=== PATIENT | male | born 1965 | race Caucasian/White ===

== ENCOUNTER 2020-02-14 17:38 | Emergency (ER) | payer SELFPAY ==
[2020-02-14 19:40] LABS: #Basophils 0.1 thou/uL (0.0-0.2); #Eosinphils 0.1 thou/uL (0.0-0.7); #Lymphocytes 1.2 thou/uL (1.20-3.40); #Monocytes 0.8 thou/uL (0.11-0.59); %Basophils 0.7 % (0.0-1.0); %Eosinophils 0.6 % (0.0-10.0); %Lymphocytes 12.8 % (21.0-51.0); Mean Corpuscular HGB CONC 32.7 g/dL (32.0-36.0); Mean Corpuscular Hemoglobin 29.1 pg (27.0-31.0); Mean Corpuscular Volume 89.1 fL (78.0-98.0); Mean Platelet Volume 10.3 fL (7.4-10.4); Platelet Count 78 thou/uL (130-400); RBC Distribution Width 16.4 % (11.5-14.5); Red Blood Cell (RBC) Count 4.14 mill/uL (4.70-6.10)
[2020-02-14 19:51] LABS: Anisocytosis SLIGHT = 6-15 cells (100X) (0-5/hpf); MDiff Complete? YES; Platelet Morphology Comment Appears Decreased
[2020-02-14 19:56] LABS: ALT (SGPT) 77 U/L (8-55); AST (SGOT) 118 U/L (5-34); Albumin 3.3 g/dL (3.5-5.0); Alkaline Phosphatase 162 U/L (40-110); Anion Gap 13 mmol/L (10-20); BUN (Urea Nitrogen) 14 mg/dL (8.4-25.7); CK (CPK) 31 U/L (30-200); Calc. Creatinine Clearance 0 mL/min (70-130); Calcium 8.5 mg/dL (7.8-10.44); Carbon Dioxide 21 mmol/L (22-29); Chloride 99 mmol/L (98-107); Estimated GFR-MDRD Greater than 90; Globulin 3.6 g/dL (2.4-3.5); Glucose 101 mg/dL (70-105); Lipase 45 U/L (8-78); Potassium 4.3 mmol/L (3.5-5.1); Protein, Total 6.9 g/dL (6.0-8.3); Sodium 129 mmol/L (136-145)
[2020-02-14 20:04] LABS: Bilirubin Negative (Negative); Blood, Urine Negative (Negative); Clarity Clear (Clear); Glucose, Urine (Dipstick) Normal (Negative); Ketone, Urine Negative (Negative); Leukocyte Negative Leu/uL (Negative); Nitrite Negative (Negative); Protein, Urine (Dipstick) 10 mg/dL (Neg-Trace); Specific Gravity, Urine 1.021 (1.002-1.036); pH, Urine 6.5 (5.0-9.0)
[2020-02-14] MEDS ORDERED: Morphine 4 MG/ML VIAL ONE (20:35)
[2020-02-14] MEDS ORDERED: Ondansetron PF 4 MG/2 ML Vial ONE (20:35)
--- NOTE | 2020-02-14 22:03 | ULT ---
Right upper quadrant ultrasound: 02/14/2020 COMPARISON: None HISTORY: Right upper quadrant pain TECHNIQUE: Multiplanar grayscale sonographic imaging of the right upper quadrant provided. FINDINGS: The pancreas is not well visualized secondary to obscuration by bowel gas. The liver is nodular and demonstrates a peripheral irregular contour, consistent with cirrhosis. Ther e is associated right upper quadrant perihepatic ascites. Nonspecific mild distention of the gallbladder are noted with no gallbladder wall thickening or galls tones. The cylinder sander operator reports a negative Timmons's sign. The right kidney measures 11.9 cm in craniocaudal dimension and demonstrates no evidence for stone, h ydronephrosis, or mass lesion. The common bile duct measures 3 mm, within normal limits. IMPRESSION: Hepatic cirrhosis with associated right upper quadrant ascites. No evidence for cholelith iasis, cholecystitis, or biliary dilatation.
== END 2020-02-14 23:08 | disposition home or self-care (01) ==
LOC: ERS 17:38
DX: K70.31 Alcoholic cirrhosis of liver with ascites (principal); I10 Essential (primary) hypertension; F41.9 Anxiety disorder, unspecified; E83.110 Hereditary hemochromatosis; F43.10 Post-traumatic stress disorder, unspecified; Z79.899 Other long term (current) drug therapy
CPT/HCPCS: 36415; 76705; 80053; 81003; 82550; 83690; 85025; 87040; 96374; 96375; J2270; J2405

== ENCOUNTER 2020-03-15 18:44 | Inpatient (IN) | payer OTHER ==
[2020-03-15 19:25] LABS: #Eosinphils 0.1 thou/uL (0.0-0.7); #Lymphocytes 1.4 thou/uL (1.20-3.40); #Monocytes 0.6 thou/uL (0.11-0.59); #Neutrophils 2.9 thou/uL (1.40-6.50); %Eosinophils 1.5 % (0.0-10.0); %Neutrophils 58.5 % (42.0-75.0); Hemoglobin 11.1 g/dL (14.0-18.0); Mean Platelet Volume 10.2 fL (7.4-10.4); Platelet Count 67 thou/uL (130-400); RBC Distribution Width 16.7 % (11.5-14.5); Red Blood Cell (RBC) Count 3.83 mill/uL (4.70-6.10)
[2020-03-15 19:32] LABS: ALT (SGPT) 184 U/L (8-55); AST (SGOT) 287 U/L (5-34); Albumin 3.1 g/dL (3.5-5.0); Alkaline Phosphatase 171 U/L (40-110); Anion Gap 12 mmol/L (10-20); BUN (Urea Nitrogen) 20 mg/dL (8.4-25.7); Bilirubin, Total 1.3 mg/dL (0.2-1.2); Calc. Creatinine Clearance 0 mL/min (70-130); Calcium 8.3 mg/dL (7.8-10.44); Carbon Dioxide 25 mmol/L (22-29); Chloride 104 mmol/L (98-107); Estimated GFR-MDRD Greater than 90; Globulin 3.2 g/dL (2.4-3.5); Glucose 108 mg/dL (70-105); Lipase 63 U/L (8-78); Potassium 4.7 mmol/L (3.5-5.1); Protein, Total 6.3 g/dL (6.0-8.3); Sodium 136 mmol/L (136-145)
[2020-03-15] MEDS ORDERED: Pantoprazole 40 MG VIAL ONE (19:54)
[2020-03-15] MEDS ORDERED: Morphine 4 MG/ML VIAL ONE (19:54)
[2020-03-15 20:07] LABS: INR-International Normal Ratio 1.2; PTT 30.8 sec (22.9-36.1); Prothrombin Time 15.8 sec (12.0-14.7)
[2020-03-15 21:09] LABS: Bilirubin Negative (Negative); Blood, Urine Negative (Negative); Clarity Clear (Clear); Glucose, Urine (Dipstick) Normal (Negative); Ketone, Urine Negative (Negative); Leukocyte Negative Leu/uL (Negative); Nitrite Negative (Negative); Protein, Urine (Dipstick) Negative (Neg-Trace); Specific Gravity, Urine 1.013 (1.002-1.036); Urobilinogen Normal mg/dL (Less than 2); pH, Urine 6.5 (5.0-9.0)
[2020-03-15] MEDS ORDERED: Ondansetron PF 4 MG/2 ML Vial IVP PRN (23:45)
[2020-03-15] MEDS ORDERED: Sodium Chloride 0.9% (PF) 10 ML VIAL FS PRN (23:45)
--- NOTE | 2020-03-15 23:53 | PDOC.HHP ---
Hospitalist HPI - History of Present Illness Melena History of Present Illness: 54-year-old gentleman with a history of liver cirrhosis, hemochromatosis and hepatitis C, history of recurrent ascites presented to the emergency department with a complaint of melena stools of onset this afternoon. Patient states this is the first episode. He is on lactulose for hepatic encephalopathy and maintenance spironolactone. His last paracentesis was about 1 month ago. Patient described melena followed by fresh blood in the stool. He stated he vomited once but no blood. Blood work in the ED is remarkable for PT of 15.8 INR 1.2, hemoglobin of 11.1 WBC of 5.0 and platelet count of 67. Patient is admitted for further evaluation and management of liver cirrhosis with melena. Hospitalist ROS - Review of Systems Other: Except as documented, all other systems reviewed and negative. - Medication Medications: Medication Instructions Recorded Confirmed Type DULoxetine [Cymbalta] 60 mg PO DAILY 03/16/20 03/16/20 History Furosemide 40 mg PO DAILY 03/16/20 03/16/20 History Lactulose [Constulose] 30 ml PO QID 03/16/20 03/16/20 History Spironolactone [Aldactone] 100 mg PO DAILY 03/16/20 03/16/20 History Hospitalist History - Past Medical History Other Medical History: Liver cirrhosis, hemochromatosis, hepatitis C, recurrent ascites. - Family History Family History: reports: cancer, diabetes mellitus, hypertension - Social History Smoking Status: Former smoker Alcohol: reports: None (He quit drinking) Drugs: reports: none Living Situation: With Family - Exam General Appearance: NAD, awake alert Eye: PERRL, scleral icterus ENT: normocephalic atraumatic, no oropharyngeal lesions, moist mucosa Neck: supple, symmetric, no JVD Heart: RRR, no murmur, no gallops Respiratory: CTAB, no wheezes, no rales, no ronchi Gastrointestinal: soft, non-tender, normal bowel sounds, distended Extremities: no cyanosis, no edema Skin: normal turgor, no rashes Neurological: cranial nerve grossly intact, no weakness, no focal deficits Musculoskeletal: normal tone, normal strength Psychiatric: normal affect, normal behavior, A&O x 3 Hospitalist Results - Labs Result Diagrams: 03/16/20 05:43 03/16/20 05:43 Lab results: WBC 5.0 thou/uL (4.8-10.8) 03/15/20 19:09 Hgb 11.1 g/dL (14.0-18.0) L 03/15/20 19:09 Hct 33.7 % (42.0-52.0) L 03/15/20 19:09 MCV 88.0 fL (78.0-98.0) 03/15/20 19:09 Plt Count 67 thou/uL (130-400) L 03/15/20 19:09 Neutrophils % 58.5 % (42.0-75.0) 03/15/20 19:09 Sodium 136 mmol/L (136-145) 03/15/20 19:09 Potassium 4.7 mmol/L (3.5-5.1) 03/15/20 19:09 Chloride 104 mmol/L (98-107) 03/15/20 19:09 Carbon Dioxide 25 mmol/L (22-29) 03/15/20 19:09 BUN 20 mg/dL (8.4-25.7) 03/15/20 19:09 Creatinine 0.77 mg/dL (0.7-1.3) 03/15/20 19:09 Glucose 108 mg/dL (70-105) H 03/15/20 19:09 Calcium 8.3 mg/dL (7.8-10.44) 03/15/20 19:09 Total Bilirubin 1.3 mg/dL (0.2-1.2) H 03/15/20 19:09 AST 287 U/L (5-34) H 03/15/20 19:09 ALT 184 U/L (8-55) H 03/15/20 19:09 Alkaline Phosphatase 171 U/L (40-110) H 03/15/20 19:09 Serum Total Protein 6.3 g/dL (6.0-8.3) 03/15/20 19:09 Albumin 3.1 g/dL (3.5-5.0) L 03/15/20 19:09 Lipase 63 U/L (8-78) 03/15/20 19:09 Urine Ketones Negative mg/dL (Negative) 03/15/20 20:52 Urine Blood Negative (Negative) 03/15/20 20:52 Urine Nitrite Negative (Negative) 03/15/20 20:52 Ur Leukocyte Esterase Negative Aubree/uL (Negative) 03/15/20 20:52 Hospitalist H&P A/P - Problem (1) GI bleed Code(s): K92.2 - GASTROINTESTINAL HEMORRHAGE, UNSPECIFIED Status: Acute (2) Liver cirrhosis Code(s): K74.60 - UNSPECIFIED CIRRHOSIS OF LIVER Status: Acute (3) Hemochromatosis Code(s): E83.119 - HEMOCHROMATOSIS, UNSPECIFIED Status: Acute (4) Thrombocytopenia Code(s): D69.6 - THROMBOCYTOPENIA, UNSPECIFIED Status: Acute - Plan Plan: Admit to the medical floor. Start IV Protonix twice daily Will add nadolol due to likelihood of esophageal varices and portal hypertension. Prophylactic IV Rocephin Consult to GI. Monitor H&H every 8 hours. Transfuse PRN for hemoglobin less than 8. Continue home dose lactulose and spironolactone. Obtain liver ultrasound. Need to rule out hepatic vein thrombosis.
[2020-03-16] MEDS: cefTRIAXone\\ROCEPHIN 1 GM in Sodium Chloride 0.9% 100 ML IVPB SCH ×2 (01:27→23:10)
[2020-03-16 01:43] VITALS: BMI 25.2
[2020-03-16] MEDS: traMADol HCl 50 MG TAB PO PRN ×2 (02:39→18:14)
[2020-03-16 06:00] LABS: Hemoglobin 10.5 g/dL (14.0-18.0)
[2020-03-16 06:26] LABS: ALT (SGPT) 177 U/L (8-55); AST (SGOT) 280 U/L (5-34); Albumin 2.8 g/dL (3.5-5.0); Alkaline Phosphatase 159 U/L (40-110); Anion Gap 11 mmol/L (10-20); BUN (Urea Nitrogen) 19 mg/dL (8.4-25.7); Calc. Creatinine Clearance 156 mL/min (70-130); Calcium 7.8 mg/dL (7.8-10.44); Carbon Dioxide 21 mmol/L (22-29); Chloride 106 mmol/L (98-107); Estimated GFR-MDRD Greater than 90; Glucose 91 mg/dL (70-105); Protein, Total 5.8 g/dL (6.0-8.3); Sodium 134 mmol/L (136-145)
[2020-03-16] MEDS: Pantoprazole 40 MG VIAL IVP SCH ×2 (08:47→20:07)
[2020-03-16] MEDS: Nadolol 40 MG TAB PO SCH (08:47)
--- NOTE | 2020-03-16 11:21 | ULT ---
RIGHT UPPER QUADRANT ABDOMINAL ULTRASOUND: DATE: 03/16/2020. PROVIDED CLINICAL HISTORY: GI bleed. FINDINGS: Comparison is made with the study dated 02/14/2020. The visualized portions of the pancreas appear no rmal. The liver demonstrates a nodular margin and a inhomogeneous appearance to the hepatic parenchy ma without evidence for mass or intrahepatic biliary ductal dilatation. The common duct is not dilat ed. The gallbladder demonstrates no stones, wall thickening, or pericholecystic fluid. The kidneys demonstrate no hydronephrosis or mass. The spleen is prominently enlarged, measuring about 18.3 cm i n craniocaudal dimension. There is evidence for free intraperitoneal fluid which appears simple. IMPRESSION: Hepatic cirrhosis with portal hypertension manifested by splenomegaly. Evidence for ascites. POS: BRANDON
--- NOTE | 2020-03-16 15:32 | PDOC.HOSPP ---
- Subjective Encounter Date: 03/16/20 Encounter Time: 11:00 Subjective: Patient up in bed complains of some abdominal pain. - Objective Vital Signs & Weight: Vital Signs (12 hours) Temp Pulse Resp BP Pulse Ox 03/16/20 11:34 97.7 F 63 16 120/75 97 03/16/20 08:41 95 03/16/20 07:10 97.8 F 77 16 124/82 95 03/16/20 04:30 97.8 F 84 20 115/75 95 Weight Weight 197 lb I&O: 03/15/20 03/16/20 03/17/20 06:59 06:59 06:59 Intake Total 160 Balance 160 Result Diagrams: 03/16/20 13:55 03/16/20 05:43 Hospitalist ROS - Review of Systems Cardiovascular: denies: chest pain, palpitations, orthopnea, paroxysmal noc. dyspnea, edema, light headedness, other Gastrointestinal: denies: nausea, vomiting, abdominal pain, diarrhea, constipation, melena, hematochezia, other Genitourinary: denies: dysuria, frequency, incontinence, hematuria, retention, other - Medication Medications: Active Medications Generic Name Dose Route Start Last Admin Trade Name Freq PRN Reason Stop Dose Admin Ceftriaxone Sodium 1 gm/ 100 mls @ 200 mls/hr 03/15/20 23:59 03/16/20 01:27 Sodium Chloride IVPB 100 mls Q24HR GADIEL Administration Lactulose 20 gm 03/16/20 13:00 03/16/20 13:11 Lactulose 20 Gm/30 Ml Udcup PO 20 gm QID GADIEL Administration Nadolol 40 mg 03/16/20 09:00 03/16/20 08:47 Nadolol 40 Mg Tab PO 40 mg DAILY GADIEL Administration Pantoprazole Sodium 40 mg 03/16/20 09:00 03/16/20 08:47 Pantoprazole 40 Mg Vial IVP 40 mg BID GADIEL Administration Tramadol HCl 50 mg 03/16/20 02:08 03/16/20 02:39 Tramadol Hcl 50 Mg Tab PO 50 mg Q6H PRN Administration Moderate to Severe Pain (6-10) - Exam Heart: negative: RRR, no murmur, no gallops, no rubs, normal peripheral pulses, irregular, diminshed peripheral pulses, murmur present, II/IV, III/IV Respiratory: negative: CTAB, no wheezes, no rales, no ronchi, normal chest expansion, no tachypnea, normal percussion, rales, rhonchi, tachypneic, wheezes Gastrointestinal: soft, normal bowel sounds, distended Extremities: 1+ LE edema Hosp A/P (1) GI bleed Code(s): K92.2 - GASTROINTESTINAL HEMORRHAGE, UNSPECIFIED Status: Acute (2) Hemochromatosis Code(s): E83.119 - HEMOCHROMATOSIS, UNSPECIFIED Status: Acute (3) Liver cirrhosis Code(s): K74.60 - UNSPECIFIED CIRRHOSIS OF LIVER Status: Acute (4) Thrombocytopenia Code(s): D69.6 - THROMBOCYTOPENIA, UNSPECIFIED Status: Acute - Plan We will continue IV Protonix. H&H stable. Vitals stable. Possible EGD in a.m. We will hold off on diuretics for now. Patient will require paracentesis before discharge. His last paracentesis was in December. We will get records from [facility]. We will start patient on nadolol. continue a ntibiotics.
[2020-03-16] MEDS: Morphine 2 MG/ML VIAL SLOW IVP PRN (20:05)
[2020-03-16] MEDS ORDERED: FLU VACC QS2020-21(6MOS UP)/PF 60 MCG/0.5 ML SYRINGE IM ONE (21:00)
--- NOTE | 2020-03-16 22:50 | CON ---
DATE OF CONSULTATION: 03/16/2020 REASON FOR CONSULTATION: History of black tarry stool and also one episode of vomiting. HISTORY OF PRESENT ILLNESS: Mr. Leonard Mccall is a 54-year-old male with history of hemochromatosis, liver cirrhosis, chronic hepatitis C. The patient was told to have hemochromatosis several years ago. He has had hepatitis C more than 8 years. He has been going to the [facility] in [place] and did see Dr. 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 Although he has had chronic hepatitis C for over the years, he was never treated. Apparently, he has history of drug abuse and is using marijuana and the [facility] refused to offer the treatment at that time. The patient has had ascites and has had paracentesis off and on. He does have this done at the [facility] in [place]. The last one was couple of months ago. The patient is not on any diuretics at home. However, he was started on diuretics here in the hospital with Lasix 40 once a day and spironolactone 100 mg once a day. He was not taking diuretics before. The patient has had an EGD done a year ago at [facility] for variceal screening. He tells me the EGD did not show any esophageal varices.. The patient had no prior history of GI bleeding. The patient had black tarry stool yesterday after when he came to the ER. He also had episode of vomiting one time. The vomiting did not show any blood or any coffee-ground material. The patient had no more tarry stool since admission to the hospital. Blood count is slightly low at 11.1 yesterday and today dropped to 10.5. Platelet count is low at 77,000. Although the patient has history of hemochromatosis, he had no family history.. His father of motor vehicle accident. His mother had no hemochromatosis. He tells me he has had liver biopsy several years ago and also had gene testing done for hemochromatosis. At the present time, he appears to be comfortable. He does have abdominal bloating and swelling. He says he has gained a lot of weight recently, most likely from the ascitic fluid. The patient denies any aspirin intake, any NSAID medication intake. He has no relevant symptoms. ALLERGIES: ASPIRIN. SOCIAL HISTORY: The patient is . He was using marijuana before, he quit using it. He is a former smoker. He quit drinking in the past. No drug abuse or substance abuse. MEDICAL ILLNESSES: 1. Liver cirrhosis. 2. Hemochromatosis. 3. Hepatitis C. 4. Ascites. 5. Depression, anxiety. REVIEW OF SYSTEMS: A 10-point system review. CONSTITUTIONAL: No history of any fever or chills. No history of any weight loss. His exercise tolerance is poor. HEENT: No chronic headache. No dizziness. Eyes, no diplopia or impaired vision. Ears, no hearing loss. Nose, no nose bleed. No rhinorrhea. Throat, no sore throat or dysphagia. NECK: No stiffness or any limitation of movement. LUNGS: No chronic coughing, hemoptysis, or dyspnea. CARDIOVASCULAR: No chest pain. No palpitation. No dyspnea, orthopnea, or PND. GI: Ascites, abdominal pain, history of tarry stool, and one episode of nausea and vomiting. : No dysuria, hematuria, or frequency of urination. MUSCULOSKELETAL: He has some back pain and arthralgias. NEUROLOGIC: No weakness. No peripheral neuropathy. No CVA. PHYSICAL EXAMINATION: GENERAL: He appears very comfortable, in no acute distress. He is awake, alert, and oriented to time, place, and person. VITAL SIGNS: Stable. Afebrile, pulse is 77, blood pressure 124/82. HEENT: Conjunctivae are clear. NECK: Supple. CARDIOVASCULAR: Normal heart sounds. LUNGS: Clear to auscultation. ABDOMEN: Distended, but soft to palpate. Abdomen is mildly tender over various quadrants. There is no one particular area of tenderness. There is no rebound or guarding. Bowel sounds are normal. EXTREMITIES: Reveal no edema, but he does have varicosities of the veins on the left lower extremity. LABORATORY DATA: CBC; WBC 5000, hemoglobin 11.1, hematocrit 33.7, platelet count 67,000, polymorphs 58, lymphocytes 27, monocytes 12. Today, H and H 10.5, hematocrit 32.8. Chemistry panel shows normal lytes except slightly low sodium at 134, BUN is 19, creatinine 0.69, glucose 91, calcium 7.8, bilirubin is 1, AST 280, ALT 177, alkaline phosphatase 159, albumin 2.8, lipase 63. CLINICAL IMPRESSION: 1. A 54-year-old male with history of liver cirrhosis and he has history of hemochromatosis and also chronic hepatitis C. He has never been treated for hepatitis C. He had no prior episodes of gastrointestinal bleeding. An EGD done a year ago at [facility] and was told to have no esophageal varicosities. 2. Abnormal LFTs, mostly the liver cirrhosis. 3. Ascites. RECOMMENDATIONS: N.p.o. for now. EGD later on today and I will make further recommendation after EGD. I will try to obtain medical records from [facility] and decide further course of treatment as outpatient. Job ID: [id number] [facility]
[2020-03-17 06:23] LABS: #Eosinphils 0.1 thou/uL (0.0-0.7); #Lymphocytes 1.4 thou/uL (1.20-3.40); #Monocytes 0.6 thou/uL (0.11-0.59); #Neutrophils 2.8 thou/uL (1.40-6.50); %Basophils 0.8 % (0.0-1.0); %Eosinophils 2.4 % (0.0-10.0); %Lymphocytes 28.3 % (21.0-51.0); %Neutrophils 55.6 % (42.0-75.0); Hemoglobin 10.7 g/dL (14.0-18.0); Mean Corpuscular HGB CONC 31.9 g/dL (32.0-36.0); Mean Corpuscular Hemoglobin 28.7 pg (27.0-31.0); Mean Corpuscular Volume 89.8 fL (78.0-98.0); Mean Platelet Volume 10.6 fL (7.4-10.4); Platelet Count 70 thou/uL (130-400); Red Blood Cell (RBC) Count 3.71 mill/uL (4.70-6.10); White Blood Cell (WBC) Count 4.9 thou/uL (4.8-10.8)
[2020-03-17 06:39] LABS: ALT (SGPT) 172 U/L (8-55); AST (SGOT) 259 U/L (5-34); Albumin 2.7 g/dL (3.5-5.0); Alkaline Phosphatase 157 U/L (40-110); Anion Gap 8 mmol/L (10-20); BUN (Urea Nitrogen) 18 mg/dL (8.4-25.7); Bilirubin, Total 1.1 mg/dL (0.2-1.2); Calc. Creatinine Clearance 150 mL/min (70-130); Carbon Dioxide 25 mmol/L (22-29); Chloride 108 mmol/L (98-107); Estimated GFR-MDRD Greater than 90; Globulin 2.9 g/dL (2.4-3.5); Glucose 88 mg/dL (70-105); Potassium 4.5 mmol/L (3.5-5.1); Protein, Total 5.6 g/dL (6.0-8.3); Sodium 136 mmol/L (136-145)
[2020-03-17] MEDS: DULoxetine 60 MG CAP PO SCH (08:08)
[2020-03-17] MEDS: Nadolol 40 MG TAB PO SCH (08:08)
[2020-03-17] MEDS: Pantoprazole 40 MG VIAL IVP SCH ×2 (08:08→20:18)
[2020-03-17] MEDS: traMADol HCl 50 MG TAB PO PRN ×3 (08:09→23:59)
[2020-03-17 08:13] LABS: SARS-CoV-2 NAA Rapid Test Not Detected (NotDetected)
[2020-03-17] MEDS ORDERED: Octreotide Acetate 100 MCG/ML VIAL SLOW IVP SCH (13:15)
[2020-03-17] MEDS ORDERED: PROPOFOL 200 MG/20 ML VIAL ONE (14:11)
--- NOTE | 2020-03-17 14:41 | OP ---
DATE OF PROCEDURE: 03/17/2020 PROCEDURE PERFORMED: Esophagogastroduodenoscopy with banding of bleeding esophageal varices and control of hemorrhage. DESCRIPTION OF PROCEDURE: Informed consent was obtained from the patient. He was sedated with total intravenous anesthesia. The bite block was placed and the endoscope was advanced easily to the second portion of the duodenum and retroflexion was performed in the stomach. The esophagus had a large grade 3 varix. There was a circular red delia sign in the distal esophagus and then at 30 cm in the mid esophagus, the same varix had a nipple over it, which appeared to be a bleeding source as well. I placed three bands over this varix. With manipulation, he did bleed actively from the more proximal nipple area. Again, this was banded and hemostasis was achieved. There was a grade 2 varix, which flattened out after the other varix was banded. The stomach had portal hypertensive gastropathy, but no gastric varices. The pylorus and first and second portions of the duodenum were normal. IMPRESSION: 1. Esophageal varices. Once grade 3 varix with red signs distally. Also a nipple over the same varix more proximally at 30 cm that did actively bleed when manipulated. This varix was banded x3 and good hemostasis was confirmed. There was active bleeding during the procedure. 2. A grade 2 varix. flattened out after banding the other varix. 3. Portal hypertensive gastropathy without gastric varices. RECOMMENDATIONS: 1. Octreotide bolus and drip x72 hours. 2. Ceftriaxone x5 day course. 3. Follow trend of the hemoglobin. Job ID: [id number] [facility]
[2020-03-17] MEDS: Morphine 2 MG/ML VIAL SLOW IVP PRN ×3 (16:26→23:59)
[2020-03-17] MEDS: Acetaminophen 325 MG TAB PO PRN (20:17)
[2020-03-18 05:53] LABS: #Basophils 0.1 thou/uL (0.0-0.2); #Eosinphils 0.1 thou/uL (0.0-0.7); #Lymphocytes 1.4 thou/uL (1.20-3.40); #Monocytes 0.6 thou/uL (0.11-0.59); #Neutrophils 2.3 thou/uL (1.40-6.50); %Basophils 1.3 % (0.0-1.0); %Eosinophils 2.2 % (0.0-10.0); %Lymphocytes 31.9 % (21.0-51.0); %Monocytes 12.5 % (0.0-10.0); %Neutrophils 52.1 % (42.0-75.0); Hemoglobin 10.9 g/dL (14.0-18.0); Mean Corpuscular HGB CONC 32.1 g/dL (32.0-36.0); Mean Corpuscular Volume 90.5 fL (78.0-98.0); Mean Platelet Volume 10.7 fL (7.4-10.4); Platelet Count 79 thou/uL (130-400); RBC Distribution Width 17.1 % (11.5-14.5); Red Blood Cell (RBC) Count 3.74 mill/uL (4.70-6.10); White Blood Cell (WBC) Count 4.4 thou/uL (4.8-10.8)
[2020-03-18 05:57] LABS: ALT (SGPT) 181 U/L (8-55); AST (SGOT) 271 U/L (5-34); Albumin 2.6 g/dL (3.5-5.0); Alkaline Phosphatase 152 U/L (40-110); Anion Gap 7 mmol/L (10-20); BUN (Urea Nitrogen) 14 mg/dL (8.4-25.7); Bilirubin, Total 1.3 mg/dL (0.2-1.2); Calc. Creatinine Clearance 142 mL/min (70-130); Calcium 7.6 mg/dL (7.8-10.44); Carbon Dioxide 24 mmol/L (22-29); Chloride 107 mmol/L (98-107); Estimated GFR-MDRD Greater than 90; Globulin 2.9 g/dL (2.4-3.5); Glucose 106 mg/dL (70-105); Potassium 4.2 mmol/L (3.5-5.1); Protein, Total 5.5 g/dL (6.0-8.3); Sodium 134 mmol/L (136-145)
[2020-03-18] MEDS: traMADol HCl 50 MG TAB PO PRN ×3 (08:08→22:28)
[2020-03-18] MEDS: Nadolol 40 MG TAB PO SCH (08:11)
[2020-03-18] MEDS: DULoxetine 60 MG CAP PO SCH (08:11)
[2020-03-18] MEDS: Morphine 2 MG/ML VIAL SLOW IVP PRN ×4 (08:19→21:18)
[2020-03-18] MEDS: Pantoprazole 40 MG VIAL IVP SCH ×2 (12:13→20:35)
--- NOTE | 2020-03-18 13:59 | PDOC.HOSPP ---
- Subjective Encounter Date: 03/17/20 Encounter Time: 14:00 Subjective: Patient up in bed post EGD - Objective Vital Signs & Weight: Vital Signs (12 hours) Temp Pulse Resp BP Pulse Ox 03/18/20 11:50 97.6 F 61 18 126/75 97 03/18/20 07:30 98.2 F 64 14 127/86 93 L Weight Admit Weight 197 lb Weight 197 lb Result Diagrams: 03/18/20 05:01 03/18/20 05:01 Hospitalist ROS - Review of Systems Cardiovascular: denies: chest pain, palpitations, orthopnea, paroxysmal noc. dyspnea, edema, light headedness, other Gastrointestinal: denies: nausea, vomiting, abdominal pain, diarrhea, constipation, melena, hematochezia, other Genitourinary: denies: dysuria, frequency, incontinence, hematuria, retention, other - Medication Medications: Active Medications Generic Name Dose Route Start Last Admin Trade Name Freq PRN Reason Stop Dose Admin Acetaminophen 650 mg 03/17/20 19:21 03/17/20 20:17 Acetaminophen 325 Mg Tab PO 650 mg Q6H PRN Administration Pain Duloxetine HCl 60 mg 03/17/20 09:00 03/18/20 08:11 Duloxetine 60 Mg Cap PO 60 mg DAILY GADIEL Administration Ceftriaxone Sodium 1 gm/ 100 mls @ 200 mls/hr 03/15/20 23:59 03/18/20 00:00 Sodium Chloride IVPB 100 mls Q24HR GADIEL Administration Lactulose 20 gm 03/16/20 13:00 03/18/20 12:49 Lactulose 20 Gm/30 Ml Udcup PO 20 gm QID GADIEL Administration Morphine Sulfate 2 mg 03/17/20 19:20 03/18/20 13:04 Morphine 2 Mg/Ml Vial SLOW IVP 2 mg Q4H PRN Administration Pain Nadolol 40 mg 03/16/20 09:00 03/18/20 08:11 Nadolol 40 Mg Tab PO 40 mg DAILY GADIEL Administration Pantoprazole Sodium 40 mg 03/16/20 09:00 03/18/20 12:13 Pantoprazole 40 Mg Vial IVP Not Given BID GADIEL Tramadol HCl 50 mg 03/16/20 02:08 03/18/20 08:08 Tramadol Hcl 50 Mg Tab PO 50 mg Q6H PRN Administration Moderate to Severe Pain (6-10) - Exam Neck: negative: supple, symmetric, no JVD, no thyromegaly, no lymphadenopathy, no carotid bruit, JVD Heart: negative: RRR, no murmur, no gallops, no rubs, normal peripheral pulses, irregular, diminshed peripheral pulses, murmur present, II/IV, III/IV Respiratory: negative: CTAB, no wheezes, no rales, no ronchi, normal chest expansion, no tachypnea, normal percussion, rales, rhonchi, tachypneic, wheezes Gastrointestinal: negative: soft, non-tender, non-distended, normal bowel sounds, no palpable masses, no hepatomegaly, no splenomegaly, no bruit, no guarding, no rigidity, tender to palpation, distended, diminished bowl sounds, voluntary guarding Hosp A/P (1) GI bleed Code(s): K92.2 - GASTROINTESTINAL HEMORRHAGE, UNSPECIFIED Status: Acute (2) Hemochromatosis Code(s): E83.119 - HEMOCHROMATOSIS, UNSPECIFIED Status: Acute (3) Liver cirrhosis Code(s): K74.60 - UNSPECIFIED CIRRHOSIS OF LIVER Status: Acute (4) Thrombocytopenia Code(s): D69.6 - THROMBOCYTOPENIA, UNSPECIFIED Status: Acute - Plan We will continue IV Protonix. H&H stable. Vitals stable. Possible EGD in a.m. We will hold off on diuretics for now. Patient will require paracentesis before discharge. His last paracentesis was in December. We will get records from [facility]. We will start patient on nadolol. continue antibiotics. 03/17 patient underwent EGD. GI recommended starting patient on octreotide drip. We will continue antibiotics.
--- NOTE | 2020-03-18 14:01 | PDOC.HOSPP ---
- Subjective Encounter Date: 03/18/20 Encounter Time: 11:00 Subjective: Patient up in bed complains of some abdominal pain. - Objective Vital Signs & Weight: Vital Signs (12 hours) Temp Pulse Resp BP Pulse Ox 03/18/20 11:50 97.6 F 61 18 126/75 97 03/18/20 07:30 98.2 F 64 14 127/86 93 L Weight Admit Weight 197 lb Weight 197 lb Result Diagrams: 03/18/20 05:01 03/18/20 05:01 Hospitalist ROS - Review of Systems Respiratory: denies: cough, dry, shortness of breath, hemoptysis, SOB with excertion, pleuritic pain, sputum, wheezing, other Cardiovascular: denies: chest pain, palpitations, orthopnea, paroxysmal noc. dyspnea, edema, light headedness, other Gastrointestinal: reports: abdominal pain Genitourinary: denies: dysuria, frequency, incontinence, hematuria, retention, other - Medication Medications: Active Medications Generic Name Dose Route Start Last Admin Trade Name Freq PRN Reason Stop Dose Admin Acetaminophen 650 mg 03/17/20 19:21 03/17/20 20:17 Acetaminophen 325 Mg Tab PO 650 mg Q6H PRN Administration Pain Duloxetine HCl 60 mg 03/17/20 09:00 03/18/20 08:11 Duloxetine 60 Mg Cap PO 60 mg DAILY GADIEL Administration Ceftriaxone Sodium 1 gm/ 100 mls @ 200 mls/hr 03/15/20 23:59 03/18/20 00:00 Sodium Chloride IVPB 100 mls Q24HR GADIEL Administration Lactulose 20 gm 03/16/20 13:00 03/18/20 12:49 Lactulose 20 Gm/30 Ml Udcup PO 20 gm QID GADIEL Administration Morphine Sulfate 2 mg 03/17/20 19:20 03/18/20 13:04 Morphine 2 Mg/Ml Vial SLOW IVP 2 mg Q4H PRN Administration Pain Nadolol 40 mg 03/16/20 09:00 03/18/20 08:11 Nadolol 40 Mg Tab PO 40 mg DAILY GADIEL Administration Pantoprazole Sodium 40 mg 03/16/20 09:00 03/18/20 12:13 Pantoprazole 40 Mg Vial IVP Not Given BID GADIEL Tramadol HCl 50 mg 03/16/20 02:08 03/18/20 08:08 Tramadol Hcl 50 Mg Tab PO 50 mg Q6H PRN Administration Moderate to Severe Pain (6-10) - Exam Neck: negative: supple, symmetric, no JVD, no thyromegaly, no lymphadenopathy, no carotid bruit, JVD Heart: negative: RRR, no murmur, no gallops, no rubs, normal peripheral pulses, irregular, diminshed peripheral pulses, murmur present, II/IV, III/IV Respiratory: negative: CTAB, no wheezes, no rales, no ronchi, normal chest expansion, no tachypnea, normal percussion, rales, rhonchi, tachypneic, wheezes Gastrointestinal: soft, normal bowel sounds Gastrointestinal - other findings: Mild tender to epigastric area on palpation. Hosp A/P (1) GI bleed Code(s): K92.2 - GASTROINTESTINAL HEMORRHAGE, UNSPECIFIED Status: Acute (2) Hemochromatosis Code(s): E83.119 - HEMOCHROMATOSIS, UNSPECIFIED Status: Acute (3) Liver cirrhosis Code(s): K74.60 - UNSPECIFIED CIRRHOSIS OF LIVER Status: Acute (4) Thrombocytopenia Code(s): D69.6 - THROMBOCYTOPENIA, UNSPECIFIED Status: Acute - Plan We will continue IV Protonix. H&H stable. Vitals stable. Possible EGD in a.m. We will hold off on diuretics for now. Patient will require paracentesis before discharge. His last paracentesis was in December. We will get records from [facility]. We will start patient on nadolol. continue antibiotics. 03/17 patient underwent EGD. GI recommended starting patient on octreotide drip. We will continue antibiotics. 03/18 patient was noted to have esophageal varices. This varix was banded x3 with good hemostasis. Portal hypertensive gastropathy without gastric varices was noted. We will continue octreotide drip and antibiotics for now. We will continue to monitor H&H. Patient may require paracentesis.
[2020-03-18] MEDS: Octreotide Acetate 1,250 MCG in Sodium Chloride 0.9% 250 ML 250 ML IVPB SCH (16:04)
--- NOTE | 2020-03-18 16:24 | PRG ---
DATE OF SERVICE: 03/18/2020 SUBJECTIVE: Mr. Mccall had no further hematemesis. No evidence of overt bleeding. His hemoglobin is stable. He has remained hemodynamically stable. He is tolerating his liquid diet. He has some ongoing constant chest discomfort and discomfort from abdominal distention. OBJECTIVE: VITAL SIGNS: Temperature 97.6, pulse 66, blood pressure 150/98, 94% oxygen saturation on room air. GENERAL: No acute distress, lying in bed comfortably. HEART: Regular rate and rhythm. LUNGS: Clear to auscultation bilaterally. ABDOMEN: Distended with ascites, moderately tense. Bowel sounds are active. Minimal tenderness to palpation throughout, but no guarding, rebound, tenderness. EXTREMITIES: No peripheral edema. LABORATORY STUDIES: Hemoglobin stable at 10.9, WBC 4.4, platelets 79. INR 1.2. Sodium 134, potassium 4.2, BUN 14, creatinine 0.76. Total bilirubin 1.3, alkaline phosphatase 152, AST 271, ALT 181, albumin 2.6. ASSESSMENT AND PLAN: 1. Esophageal varices with hemorrhage, status post variceal band ligation performed yesterday by Dr. Maguire, with successful hemostasis. The patient needs to continue on octreotide for a total of 72 hours post procedure, so he has 2 days left of this. He has been started on nadolol. 2. Ascites. The patient has had a couple of paracentesis in the past several months prior to this admission. His ascites is getting pretty tense. We will go ahead and order a diagnostic/therapeutic paracentesis for tomorrow. On discharge, the patient will need to be on diuretics with Lasix and spironolactone and adhere to a low-sodium diet. 3. Stick with clear liquid diet for now, but if doing well tomorrow, could consider advancing diet cautiously. Job ID: [id number]
[2020-03-18] MEDS: Acetaminophen 325 MG TAB PO PRN (20:34)
[2020-03-18] MEDS: cefTRIAXone\\ROCEPHIN 1 GM in Sodium Chloride 0.9% 100 ML IVPB SCH ×2 (23:14)
[2020-03-19] MEDS ORDERED: Spironolactone 25 MG TAB PO SCH (08:00)
[2020-03-19] MEDS ORDERED: Sodium Bicarbonate 2.5 MEQ/5 ML VIAL ONE (08:39)
[2020-03-19] MEDS ORDERED: Lidocaine 1% PF 5 ML VIAL ONE (08:39)
--- NOTE | 2020-03-19 09:43 | ULT ---
Sonographic guided paracentesis HISTORY: Symptomatic ascites. FINDINGS: After explaining the procedure and answering all questions, sonographic survey showed a mod erate amount of free fluid throughout the abdomen. Sterile technique, buffered local anesthesia, sonographic guidance, and a right lateral approach were used to carefully advance a 19-gauge Yueh needle and catheter in Catheter was left to drain a total volume of 1.6 L clear yellow liquid. Catheter was removed with small amount of fluid remaining. Patient tolerated the procedure well and w as returned in unchanged condition. IMPRESSION : Technically successful sonographic guided paracentesis 1.6 L.
[2020-03-19] MEDS: Morphine 2 MG/ML VIAL SLOW IVP PRN ×3 (09:45→21:16)
[2020-03-19] MEDS: Nadolol 40 MG TAB PO SCH (09:46)
[2020-03-19] MEDS: Pantoprazole 40 MG VIAL IVP SCH ×2 (09:46→20:11)
[2020-03-19] MEDS: DULoxetine 60 MG CAP PO SCH (09:46)
[2020-03-19 12:14] LABS: RBC Count-Automated (BF) 503 /cu.mm; WBC/Nucleated-Auto (BF) 579 uL
[2020-03-19 12:15] LABS: BF Color Yellow; Body Fluid Source Peritoneal Fluid; Clarity Hazy (Clear); Tube # EDTA
[2020-03-19 12:20] LABS: BF Segmented Neutrophils 10 %; Cell Count Non Hematic 74 %; Eosinophils 1 %; Lymphocytes 15 %
[2020-03-19] MEDS: traMADol HCl 50 MG TAB PO PRN ×2 (13:01→20:11)
[2020-03-19] MEDS: Octreotide Acetate 1,250 MCG in Sodium Chloride 0.9% 250 ML 250 ML IVPB SCH (16:19)
--- NOTE | 2020-03-19 18:14 | PRG ---
DATE OF SERVICE: SUBJECTIVE: Patient reports doing well without any further bleeding. There is no melena or hematemesis or coffee-ground emesis. His abdomen feels better with paracentesis. He is requiring less pain medication. PHYSICAL EXAMINATION: VITAL SIGNS: Temperature is 97.7, blood pressure 115/77, and pulse of 70. GENERAL: He is alert and oriented, lucid. HEENT: Anicteric sclerae. Oropharynx is moist. NECK: Supple. CV: Shows normal S1, S2. Regular rate and rhythm. CHEST: Shows breath sounds. ABDOMEN: Still protuberant with ascites, not tense. No tenderness. No tympany. Has active bowel sounds. EXTREMITY: Shows no edema. LABORATORY: Creatinine 0.76. Electrolytes within normal range. Bilirubin 1.3, AST 271, and ALT 183. WBCs 4.4, hemoglobin 10.9, and platelet count of 79. ASSESSMENT: 1. Status post variceal bleed, status post banding therapy two days ago. No further bleeding since. 2. Cirrhosis from hepatitis C, possible prior alcohol. There is also history of reported hemochromatosis. 3. Portal hypertension with esophageal varices and ascites, status post paracentesis today with only 1600 mL fluid removed. RECOMMENDATION: 1. We will advance diet to regular soft GI diet in a.m. 2. Continue with octreotide through tomorrow for a total 72 hours, then discontinue. 3. Continue nadolol 40 mg daily. 4. Increase spironolactone 100 mg p.o. daily and add furosemide 40 mg p.o. daily to manage his ascites. 5. We will follow. Job ID: [id number] [facility] [place] [facility]
[2020-03-20] MEDS: cefTRIAXone\\ROCEPHIN 1 GM in Sodium Chloride 0.9% 100 ML IVPB SCH ×2 (00:20→23:59)
[2020-03-20] MEDS: Morphine 2 MG/ML VIAL SLOW IVP PRN ×6 (01:04→23:58)
[2020-03-20 05:39] LABS: #Basophils 0.1 thou/uL (0.0-0.2); #Eosinphils 0.1 thou/uL (0.0-0.7); #Lymphocytes 1.3 thou/uL (1.20-3.40); #Monocytes 0.5 thou/uL (0.11-0.59); #Neutrophils 2.3 thou/uL (1.40-6.50); %Basophils 1.2 % (0.0-1.0); %Eosinophils 2.8 % (0.0-10.0); %Lymphocytes 29.9 % (21.0-51.0); %Monocytes 11.4 % (0.0-10.0); %Neutrophils 54.7 % (42.0-75.0); Hemoglobin 11.2 g/dL (14.0-18.0); Mean Corpuscular HGB CONC 32.3 g/dL (32.0-36.0); Mean Corpuscular Volume 89.6 fL (78.0-98.0); Mean Platelet Volume 10.4 fL (7.4-10.4); Platelet Count 69 thou/uL (130-400); Red Blood Cell (RBC) Count 3.86 mill/uL (4.70-6.10); White Blood Cell (WBC) Count 4.2 thou/uL (4.8-10.8)
[2020-03-20 06:00] LABS: ALT (SGPT) 190 U/L (8-55); AST (SGOT) 283 U/L (5-34); Albumin 2.6 g/dL (3.5-5.0); Alkaline Phosphatase 140 U/L (40-110); Anion Gap 10 mmol/L (10-20); BUN (Urea Nitrogen) 10 mg/dL (8.4-25.7); Bilirubin, Total 2.1 mg/dL (0.2-1.2); Calc. Creatinine Clearance 142 mL/min (70-130); Calcium 7.8 mg/dL (7.8-10.44); Carbon Dioxide 24 mmol/L (22-29); Chloride 106 mmol/L (98-107); Estimated GFR-MDRD Greater than 90; Globulin 2.8 g/dL (2.4-3.5); Glucose 89 mg/dL (70-105); Potassium 4.1 mmol/L (3.5-5.1); Protein, Total 5.4 g/dL (6.0-8.3); Sodium 136 mmol/L (136-145)
[2020-03-20] MEDS: Furosemide 40 MG TAB PO SCH (06:29)
[2020-03-20] MEDS: DULoxetine 60 MG CAP PO SCH (08:37)
[2020-03-20] MEDS: Spironolactone 100 MG TAB PO SCH (08:37)
[2020-03-20] MEDS: Nadolol 40 MG TAB PO SCH (08:37)
[2020-03-20] MEDS: Pantoprazole 40 MG VIAL IVP SCH ×2 (08:39→19:59)
[2020-03-20] MEDS: traMADol HCl 50 MG TAB PO PRN (08:49)
--- NOTE | 2020-03-20 15:02 | PDOC.HOSPP ---
- Subjective Encounter Date: 03/20/20 Encounter Time: 11:15 Subjective: pt up in bed very emotional. Spoke with patient's who states that patient currently is very emotional and wants a mental health evaluation. Patient is not suicidal or homicidal. - Objective Vital Signs & Weight: Vital Signs (12 hours) Temp Pulse Resp BP Pulse Ox 03/20/20 11:53 98.0 F 63 12 141/94 H 95 03/20/20 08:45 96 03/20/20 08:37 98.1 F 77 18 127/91 H 96 03/20/20 03:41 97.8 F 73 18 119/81 93 L Weight Admit Weight 197 lb Weight 197 lb I&O: 03/19/20 03/20/20 03/21/20 06:59 06:59 06:59 Intake Total 960 820 Balance 960 820 Result Diagrams: 03/20/20 05:21 03/20/20 05:21 Hospitalist ROS - Review of Systems Cardiovascular: denies: chest pain, palpitations, orthopnea, paroxysmal noc. dyspnea, edema, light headedness, other Gastrointestinal: denies: nausea, vomiting, abdominal pain, diarrhea, constipation, melena, hematochezia, other Genitourinary: denies: dysuria, frequency, incontinence, hematuria, retention, other - Medication Medications: Active Medications Generic Name Dose Route Start Last Admin Trade Name Freq PRN Reason Stop Dose Admin Acetaminophen 650 mg 03/17/20 19:21 03/18/20 20:34 Acetaminophen 325 Mg Tab PO 650 mg Q6H PRN Administration Pain Duloxetine HCl 60 mg 03/17/20 09:00 03/20/20 08:37 Duloxetine 60 Mg Cap PO 60 mg DAILY GADIEL Administration Furosemide 40 mg 03/20/20 07:30 03/20/20 06:29 Furosemide 40 Mg Tab PO 40 mg DAILY-AC GADIEL Administration Ceftriaxone Sodium 1 gm/ 100 mls @ 200 mls/hr 03/15/20 23:59 03/20/20 00:20 Sodium Chloride IVPB 100 mls Q24HR GADIEL Administration Octreotide Acetate 1,250 mcg/ 251.25 mls @ 10.05 mls/hr 03/17/20 13:15 03/19/20 16:19 Sodium Chloride IVPB 251.25 mls INF GADIEL Administration 50 MCG/HR Lactulose 20 gm 03/16/20 13:00 03/20/20 12:28 Lactulose 20 Gm/30 Ml Udcup PO 20 gm QID GADIEL Administration Morphine Sulfate 2 mg 03/17/20 19:20 03/20/20 10:34 Morphine 2 Mg/Ml Vial SLOW IVP 2 mg Q4H PRN Administration Pain Nadolol 40 mg 03/16/20 09:00 03/20/20 08:37 Nadolol 40 Mg Tab PO 40 mg DAILY GADIEL Administration Pantoprazole Sodium 40 mg 03/16/20 09:00 03/20/20 08:39 Pantoprazole 40 Mg Vial IVP 40 mg BID GADIEL Administration Spironolactone 100 mg 03/20/20 08:00 03/20/20 08:37 Spironolactone 100 Mg Tab PO 100 mg QAM-WM GADIEL Administration Tramadol HCl 50 mg 03/16/20 02:08 03/20/20 08:49 Tramadol Hcl 50 Mg Tab PO 50 mg Q6H PRN Administration Moderate to Severe Pain (6-10) - Exam Neck: negative: supple, symmetric, no JVD, no thyromegaly, no lymphadenopathy, no carotid bruit, JVD Heart: negative: RRR, no murmur, no gallops, no rubs, normal peripheral pulses, irregular, diminshed peripheral pulses, murmur present, II/IV, III/IV Respiratory: negative: CTAB, no wheezes, no rales, no ronchi, normal chest expansion, no tachypnea, normal percussion, rales, rhonchi, tachypneic, wheezes Gastrointestinal: soft, normal bowel sounds Gastrointestinal - other findings: Mild distention Hosp A/P (1) GI bleed Code(s): K92.2 - GASTROINTESTINAL HEMORRHAGE, UNSPECIFIED Status: Acute (2) Hemochromatosis Code(s): E83.119 - HEMOCHROMATOSIS, UNSPECIFIED Status: Acute (3) Liver cirrhosis Code(s): K74.60 - UNSPECIFIED CIRRHOSIS OF LIVER Status: Acute (4) Thrombocytopenia Code(s): D69.6 - THROMBOCYTOPENIA, UNSPECIFIED Status: Acute - Plan We will continue IV Protonix. H&H stable. Vitals stable. Possible EGD in a.m. We will hold off on diuretics for now. Patient will require paracentesis before discharge. His last paracentesis was in December. We will get records from [facility]. We will start patient on nadolol. continue antibiotics. 03/17 patient underwent EGD. GI recommended starting patient on octreotide drip. We will continue antibiotics. 03/18 patient was noted to have esophageal varices. This varix was banded x3 with good hemostasis. Portal hypertensive gastropathy without gastric varices was noted. We will continue octreotide drip and antibiotics for now. We will continue to monitor H&H. Patient may require paracentesis. 03/20 patient very emotional today. Patient's requested for patient to be seen by mental health. Patient denies any suicidal homicidal ideation. We will continue the octreotide drip for now. Possible discharge in 24 to 48 hours. Vitals and H&H is stable.
--- NOTE | 2020-03-20 15:06 | PDOC.HOSPP ---
- Subjective Encounter Date: 03/19/20 Encounter Time: 16:00 Subjective: Patient up in bed denies any complaints. - Objective Vital Signs & Weight: Vital Signs (12 hours) Temp Pulse Resp BP Pulse Ox 03/20/20 11:53 98.0 F 63 12 141/94 H 95 03/20/20 08:45 96 03/20/20 08:37 98.1 F 77 18 127/91 H 96 03/20/20 03:41 97.8 F 73 18 119/81 93 L Weight Admit Weight 197 lb Weight 197 lb I&O: 03/19/20 03/20/20 03/21/20 06:59 06:59 06:59 Intake Total 960 820 Balance 960 820 Result Diagrams: 03/20/20 05:21 03/20/20 05:21 Hospitalist ROS - Review of Systems Cardiovascular: denies: chest pain, palpitations, orthopnea, paroxysmal noc. dyspnea, edema, light headedness, other Gastrointestinal: denies: nausea, vomiting, abdominal pain, diarrhea, co nstipation, melena, hematochezia, other Genitourinary: denies: dysuria, frequency, incontinence, hematuria, retention, other - Medication Medications: Active Medications Generic Name Dose Route Start Last Admin Trade Name Freq PRN Reason Stop Dose Admin Acetaminophen 650 mg 03/17/20 19:21 03/18/20 20:34 Acetaminophen 325 Mg Tab PO 650 mg Q6H PRN Administration Pain Duloxetine HCl 60 mg 03/17/20 09:00 03/20/20 08:37 Duloxetine 60 Mg Cap PO 60 mg DAILY GADIEL Administration Furosemide 40 mg 03/20/20 07:30 03/20/20 06:29 Furosemide 40 Mg Tab PO 40 mg DAILY-AC GADIEL Administration Ceftriaxone Sodium 1 gm/ 100 mls @ 200 mls/hr 03/15/20 23:59 03/20/20 00:20 Sodium Chloride IVPB 100 mls Q24HR GADIEL Administration Octreotide Acetate 1,250 mcg/ 251.25 mls @ 10.05 mls/hr 03/17/20 13:15 03/19/20 16:19 Sodium Chloride IVPB 251.25 mls INF GADIEL Administration 50 MCG/HR Lactulose 20 gm 03/16/20 13:00 03/20/20 12:28 Lactulose 20 Gm/30 Ml Udcup PO 20 gm QID GADIEL Administration Morphine Sulfate 2 mg 03/17/20 19:20 03/20/20 10:34 Morphine 2 Mg/Ml Vial SLOW IVP 2 mg Q4H PRN Administration Pain Nadolol 40 mg 03/16/20 09:00 03/20/20 08:37 Nadolol 40 Mg Tab PO 40 mg DAILY GADIEL Administration Pantoprazole Sodium 40 mg 03/16/20 09:00 03/20/20 08:39 Pantoprazole 40 Mg Vial IVP 40 mg BID GADIEL Administration Spironolactone 100 mg 03/20/20 08:00 03/20/20 08:37 Spironolactone 100 Mg Tab PO 100 mg QAM-WM GADIEL Administration Tramadol HCl 50 mg 03/16/20 02:08 03/20/20 08:49 Tramadol Hcl 50 Mg Tab PO 50 mg Q6H PRN Administration Moderate to Severe Pain (6-10) - Exam Neck: negative: supple, symmetric, no JVD, no thyromegaly, no lymphadenopathy, no carotid bruit, JVD Heart: negative: RRR, no murmur, no gallops, no rubs, normal peripheral pulses, irregular, diminshed peripheral pulses, murmur present, II/IV, III/IV Respiratory: negative: CTAB, no wheezes, no rales, no ronchi, normal chest expansion, no tachypnea, normal percussion, rales, rhonchi, tachypneic, wheezes Gastrointestinal: soft, normal bowel sounds, tender to palpation Hosp A/P (1) GI bleed Code(s): K92.2 - GASTROINTESTINAL HEMORRHAGE, UNSPECIFIED Status: Acute (2) Hemochromatosis Code(s): E83.119 - HEMOCHROMATOSIS, UNSPECIFIED Status: Acute (3) Liver cirrhosis Code(s): K74.60 - UNSPECIFIED CIRRHOSIS OF LIVER Status: Acute (4) Thrombocytopenia Code(s): D69.6 - THROMBOCYTOPENIA, UNSPECIFIED Status: Acute - Plan We will continue IV Protonix. H&H stable. Vitals stable. Possible EGD in a.m. We will hold off on diuretics for now. Patient will require paracentesis before discharge. His last paracentesis was in December. We will get records from [facility]. We will start patient on nadolol. continue antibiotics. 03/17 patient underwent EGD. GI recommended starting patient on octreotide drip. We will continue antibiotics. 03/18 patient was noted to have esophageal varices. This varix was banded x3 with good hemostasis. Portal hypertensive gastropathy without gastric varices was noted. We will continue octreotide drip and antibiotics for now. We will continue to monitor H&H. Patient may require paracentesis. 03/19 patient up in bed status post paracentesis. We will continue current treatment.
[2020-03-20] MEDS: Octreotide Acetate 1,250 MCG in Sodium Chloride 0.9% 250 ML 250 ML IVPB SCH (20:42)
--- NOTE | 2020-03-21 01:38 | PRG ---
DATE OF SERVICE: 03/20/2020 SUBJECTIVE: Mr. Mccall had a light brown bowel movement today. No further overt bleeding. No abdominal pain. He has had some ascites and had paracentesis yesterday. PHYSICAL EXAMINATION: VITAL SIGNS: Temperature 98.1, pulse is 80, blood pressure 123/80. GENERAL: He is in no acute distress. Alert and oriented x3. No asterixis. LUNGS: Clear to auscultation bilaterally. HEART: Regular rate and rhythm without murmur. ABDOMEN: Soft, mildly distended, but certainly not tense. Bowel sounds are present. EXTREMITIES: No lower extremity edema. LABORATORY DATA: White blood cell count 4.2, hemoglobin 11.2, platelets 69. INR 1.2. Creatinine 0.76, bilirubin 2.1, alkaline phosphatase 140, AST 283, ALT 190. IMPRESSION: 1. Cirrhosis of the liver with history of hemochromatosis. He has undergone phlebotomy in the past. His current ferritin is 76. 2. Acute gastrointestinal bleed secondary to esophageal varices, status post banding with hemostasis. 3. Anemia of acute blood loss. 4. Ascites, status post paracentesis yesterday. RECOMMENDATIONS: 1. We will reduce the octreotide to 25 mcg/hour for the next 12 hours and then he can discontinue that. 2. He can stop antibiotics tomorrow. 3. He should be ready to discharge home tomorrow. He can follow up in GI Clinic. 4. Continue furosemide and spironolactone and a low-salt diet. 5. Continue nadolol as long as he continues to tolerate that well. Job ID: [id number]
[2020-03-21] MEDS: Furosemide 40 MG TAB PO SCH (06:35)
[2020-03-21] MEDS: Nadolol 40 MG TAB PO SCH (09:45)
[2020-03-21] MEDS: DULoxetine 60 MG CAP PO SCH (09:45)
[2020-03-21] MEDS: Spironolactone 100 MG TAB PO SCH (09:45)
[2020-03-21 17:35] LABS: #Eosinphils 0.1 thou/uL (0.0-0.7); #Lymphocytes 1.1 thou/uL (1.20-3.40); #Monocytes 0.5 thou/uL (0.11-0.59); #Neutrophils 3.9 thou/uL (1.40-6.50); %Basophils 0.6 % (0.0-1.0); %Eosinophils 1.3 % (0.0-10.0); %Lymphocytes 19.9 % (21.0-51.0); %Monocytes 8.5 % (0.0-10.0); %Neutrophils 69.7 % (42.0-75.0); Hemoglobin 12.3 g/dL (14.0-18.0); Mean Corpuscular HGB CONC 32.4 g/dL (32.0-36.0); Mean Corpuscular Hemoglobin 29.4 pg (27.0-31.0); Mean Corpuscular Volume 90.9 fL (78.0-98.0); Mean Platelet Volume 9.8 fL (7.4-10.4); Platelet Count 77 thou/uL (130-400); RBC Distribution Width 17.1 % (11.5-14.5); Red Blood Cell (RBC) Count 4.18 mill/uL (4.70-6.10); White Blood Cell (WBC) Count 5.5 thou/uL (4.8-10.8)
[2020-03-21 17:54] LABS: ALT (SGPT) 215 U/L (8-55); AST (SGOT) 312 U/L (5-34); Albumin 2.9 g/dL (3.5-5.0); Alkaline Phosphatase 168 U/L (40-110); Anion Gap 11 mmol/L (10-20); BUN (Urea Nitrogen) 11 mg/dL (8.4-25.7); Bilirubin, Total 3.1 mg/dL (0.2-1.2); Calc. Creatinine Clearance 142 mL/min (70-130); Calcium 8.1 mg/dL (7.8-10.44); Carbon Dioxide 26 mmol/L (22-29); Chloride 103 mmol/L (98-107); Estimated GFR-MDRD Greater than 90; Globulin 3.2 g/dL (2.4-3.5); Glucose 88 mg/dL (70-105); Magnesium 1.5 mg/dL (1.6-2.6); Potassium 4.4 mmol/L (3.5-5.1); Protein, Total 6.1 g/dL (6.0-8.3); Sodium 136 mmol/L (136-145)
[2020-03-21] MEDS ORDERED: Magnesium 2 GM/50 ML 2 GM in Premix Bag 1 BAG IVPB SCH (18:15)
--- NOTE | 2020-03-21 18:46 | PDOC.HOSPP ---
- Subjective Encounter Date: 03/21/20 Encounter Time: 10:30 Subjective: pt up in bed complains of feeling fatigue. - Objective Vital Signs & Weight: Vital Signs (12 hours) Temp Pulse Resp BP Pulse Ox 03/21/20 15:45 98.8 F 78 16 93/60 94 L 03/21/20 12:00 98.0 F 69 14 109/71 96 03/21/20 08:15 96 03/21/20 08:00 97.9 F 80 16 119/82 96 Weight Admit Weight 197 lb Weight 197 lb I&O: 03/20/20 03/21/20 03/22/20 06:59 06:59 06:59 Intake Total 820 Balance 820 Result Diagrams: 03/21/20 17:20 03/21/20 17:20 Hospitalist ROS - Review of Systems Constitutional: reports: weakness, malaise Cardiovascular: denies: chest pain, palpitations, orthopnea, paroxysmal noc. dyspnea, edema, light headedness, other Gastrointestinal: denies: nausea, vomiting, abdominal pain, diarrhea, constipation, melena, hematochezia, other Genitourinary: denies: dysuria, frequency, incontinence, hematuria, retention, other - Medication Medications: Active Medications Generic Name Dose Route Start Last Admin Trade Name Freq PRN Reason Stop Dose Admin Acetaminophen 650 mg 03/17/20 19:21 03/18/20 20:34 Acetaminophen 325 Mg Tab PO 650 mg Q6H PRN Administration Pain Duloxetine HCl 60 mg 03/17/20 09:00 03/21/20 09:45 Duloxetine 60 Mg Cap PO 60 mg DAILY GADIEL Administration Furosemide 40 mg 03/20/20 07:30 03/21/20 06:35 Furosemide 40 Mg Tab PO 40 mg DAILY-AC GADIEL Administration Ceftriaxone Sodium 1 gm/ 100 mls @ 200 mls/hr 03/15/20 23:59 03/20/20 23:59 Sodium Chloride IVPB 100 mls Q24HR GADIEL Administration Lactulose 20 gm 03/16/20 13:00 03/21/20 18:19 Lactulose 20 Gm/30 Ml Udcup PO 20 gm QID GADIEL Administration Morphine Sulfate 2 mg 03/17/20 19:20 03/20/20 23:58 Morphine 2 Mg/Ml Vial SLOW IVP 2 mg Q4H PRN Administration Pain Nadolol 40 mg 03/16/20 09:00 03/21/20 09:45 Nadolol 40 Mg Tab PO 40 mg DAILY GADIEL Administration Pantoprazole Sodium 40 mg 03/21/20 09:00 03/21/20 09:45 Pantoprazole 40 Mg Tab PO 40 mg DAILY GADIEL Administration Spironolactone 100 mg 03/20/20 08:00 03/21/20 09:45 Spironolactone 100 Mg Tab PO 100 mg QAM-WM GADIEL Administration Tramadol HCl 50 mg 03/16/20 02:08 03/20/20 08:49 Tramadol Hcl 50 Mg Tab PO 50 mg Q6H PRN Administration Moderate to Severe Pain (6-10) - Exam Heart: negative: RRR, no murmur, no gallops, no rubs, normal peripheral pulses, irregular, diminshed peripheral pulses, murmur present, II/IV, III/IV Respiratory: negative: CTAB, no wheezes, no rales, no ronchi, normal chest expan daija, no tachypnea, normal percussion, rales, rhonchi, tachypneic, wheezes Gastrointestinal: soft, normal bowel sounds Gastrointestinal - other findings: mild distention Extremities: 1+ LE edema Hosp A/P (1) GI bleed Code(s): K92.2 - GASTROINTESTINAL HEMORRHAGE, UNSPECIFIED Status: Acute (2) Hemochromatosis Code(s): E83.119 - HEMOCHROMATOSIS, UNSPECIFIED Status: Acute (3) Liver cirrhosis Code(s): K74.60 - UNSPECIFIED CIRRHOSIS OF LIVER Status: Acute (4) Thrombocytopenia Code(s): D69.6 - THROMBOCYTOPENIA, UNSPECIFIED Status: Acute - Plan We will continue IV Protonix. H&H stable. Vitals stable. Possible EGD in a.m. We will hold off on diuretics for now. Patient will require paracentesis before discharge. His last paracentesis was in December. We will get records from [facility]. We will start patient on nadolol. continue antibiotics. 03/17 patient underwent EGD. GI recommended starting patient on octreotide drip. We will continue antibiotics. 03/18 patient was noted to have esophageal varices. This varix was banded x3 with good hemostasis. Portal hypertensive gastropathy without gastric varices was noted. We will continue octreotide drip and antibiotics for now. We will continue to monitor H&H. Patient may require paracentesis. 03/20 patient very emotional today. Patient's requested for patient to be seen by mental health. Patient denies any suicidal homicidal ideation. We will continue the octreotide drip for now. Possible discharge in 24 to 48 hours. Vitals and H&H is stable. 03/20 pt's octreotide drip has been discontinued. will continue his current meds. pt was suppose to be discharged today but does not feel well and does not want to go home today. Blood work checked and his magnesium is low will replace. will stop abx per gi recommendation. will check labs in am if stable will discharge him in am.
[2020-03-21] MEDS: Morphine 2 MG/ML VIAL SLOW IVP PRN (20:03)
[2020-03-22] MEDS: Furosemide 40 MG TAB PO SCH (06:08)
[2020-03-22] MEDS: DULoxetine 60 MG CAP PO SCH (08:55)
[2020-03-22] MEDS: Nadolol 40 MG TAB PO SCH (08:55)
[2020-03-22] MEDS: Spironolactone 100 MG TAB PO SCH (08:55)
[2020-03-22 11:05] VITALS: BP 122/79; TEMP 97.7
--- NOTE | 2020-03-22 12:22 | PDOC.HOSPP ---
- Subjective Encounter Date: 03/22/20 Encounter Time: 12:20 Subjective: Mr. Mccall was seen today in follow-up of cirrhosis due to hemachromatosis with GI bleed He does not have any new complaints. - Objective Vital Signs & Weight: Vital Signs (12 hours) Temp Pulse Resp BP Pulse Ox 03/22/20 11:01 97.7 F 78 16 122/79 98 03/22/20 08:55 97 03/22/20 07:24 96.8 F L 84 16 115/82 97 Weight Admit Weight 197 lb Weight 197 lb I&O: 03/21/20 03/22/20 03/23/20 06:59 06:59 06:59 Intake Total 1275 Balance 1275 Result Diagrams: 03/21/20 17:20 03/21/20 17:20 Hospitalist ROS - Medication Medications: Active Medications Generic Name Dose Route Start Last Admin Trade Name Freq PRN Reason Stop Dose Admin Acetaminophen 650 mg 03/17/20 19:21 03/18/20 20:34 Acetaminophen 325 Mg Tab PO 650 mg Q6H PRN Administration Pain Duloxetine HCl 60 mg 03/17/20 09:00 03/22/20 08:55 Duloxetine 60 Mg Cap PO 60 mg DAILY GADIEL Administration Furosemide 40 mg 03/20/20 07:30 03/22/20 06:08 Furosemide 40 Mg Tab PO 40 mg DAILY-AC GADIEL Administration Lactulose 20 gm 03/16/20 13:00 03/22/20 08:55 Lactulose 20 Gm/30 Ml Udcup PO 20 gm QID GADIEL Administration Morphine Sulfate 2 mg 03/17/20 19:20 03/21/20 20:03 Morphine 2 Mg/Ml Vial SLOW IVP 2 mg Q4H PRN Administration Pain Nadolol 40 mg 03/16/20 09:00 03/22/20 08:55 Nadolol 40 Mg Tab PO 40 mg DAILY GADIEL Administration Pantoprazole Sodium 40 mg 03/21/20 09:00 03/22/20 08:55 Pantoprazole 40 Mg Tab PO 40 mg DAILY GADIEL Administration Spironolactone 100 mg 03/20/20 08:00 03/22/20 08:55 Spironolactone 100 Mg Tab PO 100 mg QAM-WM GADIEL Administration Tramadol HCl 50 mg 03/16/20 02:08 03/20/20 08:49 Tramadol Hcl 50 Mg Tab PO 50 mg Q6H PRN Administration Moderate to Severe Pain (6-10) - Exam Eye: PERRL, anicteric sclera Heart: RRR, no murmur, no gallops, no rubs, normal peripheral pulses Respiratory: CTAB, no wheezes, no rales, no ronchi, normal chest expansion, no tachypnea Gastrointestinal: soft, non-tender, normal bowel sounds, no palpable masses, distended Extremities: 1+ LE edema Hosp A/P (1) GI bleed Code(s): K92.2 - GASTROINTESTINAL HEMORRHAGE, UNSPECIFIED Status: Acute (2) Hemochromatosis Code(s): E83.119 - HEMOCHROMATOSIS, UNSPECIFIED Status: Acute (3) Liver cirrhosis Code(s): K74.60 - UNSPECIFIED CIRRHOSIS OF LIVER Status: Acute - Plan * Cirrhosis due to hemachromatosis with GI bleed due to varices. * He is s/p banding * His H&H has been stable * He is stable for discharge home.
--- NOTE | 2020-03-23 | DIS ---
DATE OF ADMISSION: 03/15/2020 DATE OF DISCHARGE: 03/22/2020 DISCHARGE DISPOSITION: Home. DISCHARGE DIAGNOSES: 1. Esophageal varices with bleed. 2. Acute blood loss anemia. 3. Cirrhosis due to hemochromatosis and hepatitis C. 4. History of hepatic encephalopathy. DISCHARGE MEDICATIONS: 1. Tramadol 50 mg q.6 as needed. 2. Lasix 40 mg p.o. daily. 3. Nadolol 40 mg p.o. daily. 4. Cymbalta 60 mg p.o. daily. 5. Lactulose 20 g p.o. q.i.d. 6. Aldactone 100 mg p.o. daily. IMAGING DONE DURING THE HOSPITAL STAY: The patient had an abdominal ultrasound showing hepatic cirrhosis with portal hypertension, and evidence of splenomegaly and ascites. The patient had an upper endoscopy showing esophageal varices, one was grade 3 with red signs distally, this was banded. Also, there was a grade 2 varix, which was flattened out after banding and then evidence of portal hypertensive gastropathy without gastric varices. The patient also had a large volume paracentesis with the drainage of 1.6 L of clear fluid. CODE STATUS: Full code. ALLERGIES: TO ASPIRIN. HOSPITAL COURSE: Mr. Mccall is a 54-year-old gentleman, who presented to the emergency room with dark stools and generalized weakness. He was found to be anemic with a hemoglobin of approximately 12. He was seen by GI. Prior to this, he was placed on IV Protonix as well as octreotide. He underwent upper endoscopy demonstrating 2 esophageal varices, which were banded and evidence for gastropathy and portal hypertension. He was monitored a few days post procedure in the hospital to establish stability of his H and H. He did not have any further bleeding. He also had a therapeutic paracentesis as well as diagnostic. There was no evidence of spontaneous bacterial peritonitis with no organisms seen, and the cell counts was right at 500. He was placed on antibiotics prophylactically, but these were able to be discontinued at discharge. The patient was discharged on 03/22/2020, and has been instructed to have close outpatient followup. Job ID: [id number]
--- NOTE | 2020-03-25 05:35 | PQF ---
Dear : Gilberto Rodriguez Date 03/25/20 Please exercise your independent, professional judgment in responding to the clarification form. Clinical indicators are provided on the bottom of this form for your review Can you please further clarify the relationship of Cirrhosis and esophageal varices? Please check appropriate box(es): [ ] Esophageal Varices due to Liver cirrhosis [ ] Esophageal Varices not due to Liver cirrhosis [ ] Other diagnosis p[lease specify [ ] Unable to determine Physician Signature: Date/Time: For continuity of documentation, please document condition throughout progress notes and discharge summary. Thank You. To be completed by CDI/Coding staff for physician review: Present Clinical Indicators - Signs / Symptoms / Labs Results and Location in Medical Record [ x ] Melena H and P pg.1 [ x ] Hx of liver cirrhosis, hemochromatosis and hepatitis C, History of recurrent ascites H and P pg.1 [ x ] Admitted for evaluation and management of liver cirrhosis and melena H and P pg.1 [ x ] Esophageal varices with hemorrhage PN 03/18 pg.1 [ x ] Cirrhosis of the liver with hx of hemochromatosis, acute GI bleed 2/2 esophageal varices PN 03/20 pg.1 [ x ] Abdominal ultrasound showing hepatic cirrhosis with portal hypertension DS pg.1 Present Risk Factors Results and Location in Medical Record [ x ] GI Bleed H and P pg.3 [ x ] Hemochromatosis H and P pg.3 [ x ] Chronic hepatitis C Consult pg.1 [ x ] Former Smoker Consult pg.1 [ x ] Portal hypertensive gastropathy OP report pg.1 [ x ] Hx of hepatic encephalopathy DS pg.1 Present Treatments Results and Location in Medical Record [ x ] Abdomen Ultrasound 03/15 [ x ] EGD with banding of bleeding esophageal varices OP Report pg.1 [ x ] IV Fluids MAR [ x ] Nephrology Consult Dr. Kelley 03/16 [ x ] Paracentesis 03/19 [ x ] Morphine sulfate 2gm IV MAR [ x ] Aldactone 100 mg PO MAR CDS/[employer]oat [employer]ter Signature: Saurav Mohan Phone #: ext [phone] Date 03/25 This is a permanent part of the Medical Record MTDD
== END 2020-03-22 14:14 | disposition home or self-care (01) | DRG 441 ==
LOC: ERS 18:44 → SURG A 23:14
PROVIDERS: ADMIT Internal Medicine; ATTEND Internal Medicine
PROC: 06L38CZ Occlusion of Esophageal Vein with Extraluminal Device, Via Natural or Artificial Opening Endoscopic (ICD-10-PCS; principal; 2020-03-17)
PROC: 3E02340 Introduction of Influenza Vaccine into Muscle, Percutaneous Approach (ICD-10-PCS; 2020-03-17)
PROC: 0W9G3ZZ Drainage of Peritoneal Cavity, Percutaneous Approach (ICD-10-PCS; 2020-03-19)
DX: K76.6 Portal hypertension (principal); I85.11 Secondary esophageal varices with bleeding; R18.8 Other ascites; D62 Acute posthemorrhagic anemia; K74.60 Unspecified cirrhosis of liver; Z20.828 Contact with and (suspected) exposure to other viral communicable diseases; Z23 Encounter for immunization; F41.9 Anxiety disorder, unspecified; F43.10 Post-traumatic stress disorder, unspecified; F12.10 Cannabis abuse, uncomplicated; E83.119 Hemochromatosis, unspecified; B18.2 Chronic viral hepatitis C; D69.6 Thrombocytopenia, unspecified; K31.89 Other diseases of stomach and duodenum; F32.9 Major depressive disorder, single episode, unspecified; Z90.49 Acquired absence of other specified parts of digestive tract; Z88.8 Allergy status to other drugs, medicaments and biological substances; Z79.899 Other long term (current) drug therapy; Z87.891 Personal history of nicotine dependence
CPT/HCPCS: 36415; 49083; 80053; 81003; 82042; 82274; 82728; 83690; 83735; 84157; 85014; 85018; 85025; 85060; 85610; 85730; 87070; 87205; 88112; 89051; 90471; 90662; 93975; 96374; 96375; C9113; G0008; J0696; J2270; J2354; J2704; J3475; J3490; J7050; U0002

== ENCOUNTER 2020-04-09 08:20 | Inpatient (IN) | payer OTHER ==
[2020-04-09 09:25] LABS: #Basophils 0.1 thou/uL (0.0-0.2); #Eosinphils 0.1 thou/uL (0.0-0.7); #Lymphocytes 1.3 thou/uL (1.20-3.40); #Monocytes 0.8 thou/uL (0.11-0.59); #Neutrophils 7.7 thou/uL (1.40-6.50); %Basophils 0.5 % (0.0-1.0); %Eosinophils 0.6 % (0.0-10.0); %Lymphocytes 12.8 % (21.0-51.0); %Monocytes 8.2 % (0.0-10.0); %Neutrophils 77.9 % (42.0-75.0); Hemoglobin 11.1 g/dL (14.0-18.0); Mean Corpuscular HGB CONC 32.5 g/dL (32.0-36.0); Mean Corpuscular Hemoglobin 28.8 pg (27.0-31.0); Mean Corpuscular Volume 88.6 fL (78.0-98.0); Platelet Count 74 thou/uL (130-400); RBC Distribution Width 16.9 % (11.5-14.5); Red Blood Cell (RBC) Count 3.85 mill/uL (4.70-6.10); White Blood Cell (WBC) Count 9.8 thou/uL (4.8-10.8)
--- NOTE | 2020-04-09 09:31 | RAD ---
XR Chest 1 View Portable HISTORY: Epigastric abdominal pain COMPARISON: None FINDINGS: The heart size is normal. The lungs are well expanded without focal areas of consolidation, pneumothorax or pleural effusions. IMPRESSION: No radiographic evidence of acute cardiopulmonary process.
[2020-04-09 09:33] LABS: INR-International Normal Ratio 1.2; PTT 31.9 sec (22.9-36.1); Prothrombin Time 15.9 sec (12.0-14.7)
[2020-04-09 09:48] LABS: Anion Gap 12 mmol/L (10-20); BUN (Urea Nitrogen) 17 mg/dL (8.4-25.7); Calc. Creatinine Clearance 0 mL/min (70-130); Calcium 8.5 mg/dL (7.8-10.44); Carbon Dioxide 25 mmol/L (22-29); Chloride 99 mmol/L (98-107); Estimated GFR-MDRD Greater than 90; Glucose 104 mg/dL (70-105); Lipase 65 U/L (8-78); Sodium 132 mmol/L (136-145)
[2020-04-09 09:54] LABS: ALT (SGPT) 107 U/L (8-55); AST (SGOT) 154 U/L (5-34); Albumin 3.3 g/dL (3.5-5.0); Alkaline Phosphatase 167 U/L (40-110); Bilirubin, Total 1.5 mg/dL (0.2-1.2); Protein, Total 6.8 g/dL (6.0-8.3)
[2020-04-09] MEDS ORDERED: Morphine 4 MG/ML VIAL ONE (10:51)
[2020-04-09] MEDS ORDERED: cefTRIAXone\\ROCEPHIN 1 GM VIAL ONE (10:51)
[2020-04-09 11:21] LABS: RBC Count-Automated (BF) 1393 /cu.mm; WBC/Nucleated-Auto (BF) 1036 uL
[2020-04-09 11:47] LABS: BF Color Yellow; Body Fluid Source Ascites Body Fluid; Clarity Hazy (Clear); Tube # 1
[2020-04-09 11:53] LABS: BF Segmented Neutrophils 42 %; Cell Count Non Hematic 55 %; Lymphocytes 3 %
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
[2020-04-09] MEDS ORDERED: Metoclopramide HCl 10 MG/2 ML VIAL ONE (12:47)
[2020-04-09] MEDS ORDERED: diphenhydrAMINE 50 MG/ML VIAL ONE (12:47)
[2020-04-09] MEDS ORDERED: Metoclopramide 10 MG/10 ML UDCUP ONE (12:47)
[2020-04-09] MEDS ORDERED: Metoclopramide HCl 10 MG TAB ONE (12:47)
[2020-04-09] MEDS ORDERED: Ondansetron PF 4 MG/2 ML Vial IVP PRN (13:00)
[2020-04-09] MEDS ORDERED: Ondansetron ODT 4 MG TAB PO PRN (13:00)
[2020-04-09 13:02] LABS: Bilirubin Negative (Negative); Blood, Urine Negative (Negative); Clarity Clear (Clear); Glucose, Urine (Dipstick) Normal (Negative); Ketone, Urine Negative (Negative); Leukocyte Negative Leu/uL (Negative); Nitrite Negative (Negative); Protein, Urine (Dipstick) Negative (Neg-Trace); Specific Gravity, Urine 1.019 (1.002-1.036); Urobilinogen Normal mg/dL (Less than 2)
[2020-04-09 17:41] VITALS: BMI 24.7
[2020-04-09 20:21] LABS: Amphetamine Not Detected (NotDetected); Barbiturates Screen Not Detected (NotDetected); Benzodiazepine Screen Not Detected (NotDetected); Cocaine Metabolite Screen Not Detected (NotDetected); Medtox Control Line Valid? VALID (VALID); Medtox Reader # READER 4; Methadone Not Detected (NotDetected); Methamphetamine Not Detected (NotDetected); Opiate Screen Detected (NotDetected); Oxycodone Screen Not Detected (NotDetected); Phencyclidine (PCP) Not Detected (NotDetected); THC/Cannabinoid Screen Detected (NotDetected); Tricyclic Screen Not Detected (NotDetected)
[2020-04-09] MEDS: Famotidine 20 MG TAB PO SCH (21:21)
[2020-04-10] MEDS: traMADol HCl 50 MG TAB PO SCH ×3 (03:35→20:14)
[2020-04-10] MEDS ORDERED: traMADol HCl 50 MG TAB PO SCH (06:00)
[2020-04-10 06:48] LABS: #Eosinphils 0.1 thou/uL (0.0-0.7); #Lymphocytes 1.2 thou/uL (1.20-3.40); #Monocytes 0.7 thou/uL (0.11-0.59); #Neutrophils 4.7 thou/uL (1.40-6.50); %Basophils 0.5 % (0.0-1.0); %Eosinophils 0.9 % (0.0-10.0); %Lymphocytes 17.5 % (21.0-51.0); %Monocytes 10.1 % (0.0-10.0); Hemoglobin 10.4 g/dL (14.0-18.0); Mean Corpuscular Hemoglobin 28.9 pg (27.0-31.0); Mean Corpuscular Volume 90.4 fL (78.0-98.0); Mean Platelet Volume 4.8 fL (7.4-10.4); Platelet Count 71 thou/uL (130-400); White Blood Cell (WBC) Count 6.7 thou/uL (4.8-10.8)
[2020-04-10 06:57] LABS: Anion Gap 10 mmol/L (10-20); BUN (Urea Nitrogen) 15 mg/dL (8.4-25.7); Calc. Creatinine Clearance 149 mL/min (70-130); Calcium 8.1 mg/dL (7.8-10.44); Carbon Dioxide 22 mmol/L (22-29); Chloride 105 mmol/L (98-107); Estimated GFR-MDRD Greater than 90; Glucose 119 mg/dL (70-105); Potassium 3.9 mmol/L (3.5-5.1); Sodium 133 mmol/L (136-145)
[2020-04-10 06:58] LABS: ALT (SGPT) 83 U/L (8-55); AST (SGOT) 113 U/L (5-34); Albumin 2.7 g/dL (3.5-5.0); Alkaline Phosphatase 130 U/L (40-110); Bilirubin, Total 1.6 mg/dL (0.2-1.2); Protein, Total 5.8 g/dL (6.0-8.3)
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
[2020-04-10] MEDS: DULoxetine 60 MG CAP PO SCH (08:28)
[2020-04-10] MEDS: Furosemide 40 MG TAB PO SCH (08:28)
[2020-04-10] MEDS: Nadolol 40 MG TAB PO SCH (08:28)
[2020-04-10] MEDS: Spironolactone 100 MG TAB PO SCH (09:00)
[2020-04-10] MEDS: Famotidine 20 MG TAB PO SCH ×2 (09:00→20:13)
--- NOTE | 2020-04-10 10:06 | CON ---
DATE OF CONSULTATION: 04/09/2020 HISTORY OF PRESENT ILLNESS: This is a 54-year-old male, who is known to me from before. The patient was seen by me a month ago and was hospitalized with black tarry stool and ascites. The patient has history of chronic hepatitis C, untreated over the years. He also has history of hemochromatosis. The patient used to go to [facility] in [place], but he decided not to go there anymore. The patient was hospitalized in February 2020 with a history of black tarry stool, anemia. He underwent EGD and was found to have esophageal varices and underwent banding by Dr. Marco A Maguire. The patient also had paracentesis done during last admission. The patient is on diuretics including Lasix and spironolactone. He was seen in my office a week ago. He has been referred to liver transplant program in [place] and is supposed to go there on April 22. In the meantime, he came to the ER with abdominal pain and was found to have evidence of spontaneous bacterial peritonitis. He had ascitic fluid, cell count showing more than 1036 WBCs and 42% neutrophils. The findings are suggestive of spontaneous bacterial peritonitis. He is on antibiotics. He has done well since last discharge. He has no history of hematemesis or melena. He has no relevant symptoms. MEDICAL ILLNESSES: 1. Liver cirrhosis. 2. Portal hypertension, esophageal varices. 3. Chronic hepatitis C, untreated. 4. History of hemochromatosis. 5. Anxiety. 6. Hypertension. SURGERIES: Appendectomy, hernia repair, has had bilateral rotator cuff repair. He had EGD by Dr. Maguire with banding. MEDICATIONS: Reviewed. REVIEW OF SYSTEMS: PHYSICAL EXAMINATION: GENERAL: He appears comfortable, in no acute distress. VITAL SIGNS: He is afebrile. Pulse is 91, blood pressure 130/83. HEENT: Mildly icteric. NECK: Supple. CARDIOVASCULAR SYSTEM: Normal heart sounds. LUNGS: Clear to auscultation. ABDOMEN: Soft. Abdomen distended with ascites. Abdomen is diffusely tender. No rebound or guarding. Bowel sounds normal. LABORATORY DATA: Shows ascitic fluid showing hazy fluid 1036 WBCs, 42% neutrophils. His serum chemistry shows sodium 132, potassium 4, chloride 99, bicarb is 25, BUN is 17, creatinine 0.74, glucose 104, bilirubin 1.5, direct bilirubin 1.0, AST 154, ALT 107, alkaline phosphatase 167, albumin 3.3. CBC; WBC 9800, hemoglobin 11.1, hematocrit 34.1, platelet count 74,000. CLINICAL IMPRESSION: 1. Liver cirrhosis, ascites, evidence of spontaneous bacterial peritonitis. 2. Abnormal LFTs, acute liver cirrhosis. 3. Chronic hepatitis C, untreated. 4. History of hemochromatosis. 5. Ascites. 6. . 7. Hypertension. RECOMMENDATIONS: Recommend IV antibiotics question of some abnormal fluid . I would prefer to see the patient staying on antibiotics for the next 48 hours and if he does well he can go home on p.o. antibiotics. Make an appointment with liver transplant program in [place] for the transplant. Job ID: [id number]
[2020-04-10 11:33] LABS: SARS-CoV-2 MS2 Positive; SARS-CoV-2 N Gene Negative; SARS-CoV-2 S Gene Negative; SARS-CoV-2 by NAA Not Detected (NotDetected); SARS-CoV-2 orf1ab Negative
[2020-04-10] MEDS: cefTRIAXone\\ROCEPHIN 1 GM in Sodium Chloride 0.9% 100 ML IVPB SCH (12:00)
[2020-04-10] MEDS: Morphine 2 MG/ML VIAL SLOW IVP PRN (16:44)
[2020-04-11] MEDS: traMADol HCl 50 MG TAB PO SCH ×3 (03:58→19:35)
[2020-04-11] MEDS: Calcium Carbonate 500 MG ChewTAB PO PRN ×2 (03:58→11:11)
[2020-04-11] MEDS: Morphine 2 MG/ML VIAL SLOW IVP PRN ×4 (04:49→22:14)
[2020-04-11 06:01] LABS: #Eosinphils 0.1 thou/uL (0.0-0.7); #Lymphocytes 0.9 thou/uL (1.20-3.40); #Monocytes 0.6 thou/uL (0.11-0.59); #Neutrophils 3.8 thou/uL (1.40-6.50); %Basophils 0.4 % (0.0-1.0); %Eosinophils 1.2 % (0.0-10.0); %Lymphocytes 16.4 % (21.0-51.0); %Monocytes 10.7 % (0.0-10.0); %Neutrophils 71.3 % (42.0-75.0); Hemoglobin 10.2 g/dL (14.0-18.0); Mean Corpuscular HGB CONC 32.5 g/dL (32.0-36.0); Mean Corpuscular Hemoglobin 28.7 pg (27.0-31.0); Mean Corpuscular Volume 88.4 fL (78.0-98.0); Mean Platelet Volume 10.2 fL (7.4-10.4); Platelet Count 64 thou/uL (130-400); RBC Distribution Width 16.6 % (11.5-14.5); Red Blood Cell (RBC) Count 3.56 mill/uL (4.70-6.10); White Blood Cell (WBC) Count 5.4 thou/uL (4.8-10.8)
[2020-04-11 06:18] LABS: Anion Gap 13 mmol/L (10-20); BUN (Urea Nitrogen) 16 mg/dL (8.4-25.7); Calc. Creatinine Clearance 151 mL/min (70-130); Calcium 7.9 mg/dL (7.8-10.44); Carbon Dioxide 21 mmol/L (22-29); Chloride 103 mmol/L (98-107); Estimated GFR-MDRD Greater than 90; Glucose 132 mg/dL (70-105); Potassium 3.7 mmol/L (3.5-5.1); Sodium 133 mmol/L (136-145)
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
[2020-04-11] MEDS: Spironolactone 100 MG TAB PO SCH (09:03)
[2020-04-11] MEDS: Famotidine 20 MG TAB PO SCH ×2 (09:03→19:34)
[2020-04-11] MEDS: Furosemide 40 MG TAB PO SCH (09:03)
[2020-04-11] MEDS: DULoxetine 60 MG CAP PO SCH (09:03)
[2020-04-11] MEDS: Nadolol 40 MG TAB PO SCH (09:03)
[2020-04-11] MEDS: cefTRIAXone\\ROCEPHIN 1 GM in Sodium Chloride 0.9% 100 ML IVPB SCH (09:04)
--- NOTE | 2020-04-11 14:09 | PQF ---
CLINICAL DOCUMENTATION CLARIFICATION FORM: Dear GERMAINE Guadalupe Date: 04/11/2020 Please exercise your independent, professional judgment in responding to the clarification form. Clinical indicators are provided on the bottom of this form for your review. Please check appropriate box(s): [ X ] Hyponatremia, mild [ ] Insignificant lab value [ ] Other diagnosis [ ] Unable to determine For continuity of documentation, please document condition throughout progress notes and discharge summary. Thank You. CLINICAL INDICATORS - SIGNS / SYMPTOMS / LABS / RESULTS AND LOCATION IN EMR *LAB (EMR): Sodium Level 04/09 132 04/10 133 04/11 133 RISK FACTORS / RESULTS AND LOCATION IN EMR *H&P 04/09 (Magdi): Takes spironolactone, Lasix at home. *MAR (EMR): Lasix PO daily 04/10-04/11, Spironolactone 100 mg PO QAM 04/10-04/11 TREATMENTS / RESULTS AND LOCATION IN EMR *ED 04/09: NS 500ml IV *LAB (EMR): BMP 04/09-04/11 Thank you, Ronda CDS/Music Sound Light Technician Signature: Ronda Cancino RN, CDS Phone #: [phone] [email or web address] This is a permanent part of the Medical Record [facility]
[2020-04-12] MEDS: traMADol HCl 50 MG TAB PO SCH ×3 (04:23→20:32)
[2020-04-12] MEDS: Calcium Carbonate 500 MG ChewTAB PO PRN (04:24)
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
[2020-04-12 07:41] LABS: #Eosinphils 0.1 thou/uL (0.0-0.7); #Lymphocytes 1.4 thou/uL (1.20-3.40); #Monocytes 0.7 thou/uL (0.11-0.59); #Neutrophils 4.1 thou/uL (1.40-6.50); %Basophils 0.6 % (0.0-1.0); %Lymphocytes 22.4 % (21.0-51.0); %Monocytes 10.5 % (0.0-10.0); %Neutrophils 64.6 % (42.0-75.0); Hemoglobin 11.1 g/dL (14.0-18.0); Mean Corpuscular HGB CONC 31.9 g/dL (32.0-36.0); Mean Corpuscular Hemoglobin 28.3 pg (27.0-31.0); Mean Corpuscular Volume 88.7 fL (78.0-98.0); Mean Platelet Volume 9.6 fL (7.4-10.4); Platelet Count 101 thou/uL (130-400); RBC Distribution Width 16.7 % (11.5-14.5); White Blood Cell (WBC) Count 6.3 thou/uL (4.8-10.8)
[2020-04-12 07:43] LABS: Anion Gap 9 mmol/L (10-20); BUN (Urea Nitrogen) 14 mg/dL (8.4-25.7); Calc. Creatinine Clearance 151 mL/min (70-130); Carbon Dioxide 27 mmol/L (22-29); Chloride 100 mmol/L (98-107); Estimated GFR-MDRD Greater than 90; Glucose 89 mg/dL (70-105); Potassium 3.7 mmol/L (3.5-5.1); Sodium 132 mmol/L (136-145)
[2020-04-12] MEDS: DULoxetine 60 MG CAP PO SCH (08:58)
[2020-04-12] MEDS: Famotidine 20 MG TAB PO SCH ×2 (08:59→20:31)
[2020-04-12] MEDS: Furosemide 40 MG TAB PO SCH (08:59)
[2020-04-12] MEDS: Nadolol 40 MG TAB PO SCH (08:59)
[2020-04-12] MEDS: Spironolactone 100 MG TAB PO SCH (08:59)
[2020-04-12] MEDS: cefTRIAXone\\ROCEPHIN 1 GM in Sodium Chloride 0.9% 100 ML IVPB SCH (11:05)
[2020-04-12] MEDS: Morphine 2 MG/ML VIAL SLOW IVP PRN (20:36)
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
[2020-04-13 06:05] LABS: #Eosinphils 0.1 thou/uL (0.0-0.7); #Lymphocytes 0.9 thou/uL (1.20-3.40); #Monocytes 0.4 thou/uL (0.11-0.59); #Neutrophils 2.6 thou/uL (1.40-6.50); %Basophils 0.6 % (0.0-1.0); %Lymphocytes 21.6 % (21.0-51.0); %Monocytes 11.2 % (0.0-10.0); %Neutrophils 64.6 % (42.0-75.0); Hemoglobin 10.4 g/dL (14.0-18.0); Mean Corpuscular HGB CONC 31.7 g/dL (32.0-36.0); Mean Corpuscular Hemoglobin 28.1 pg (27.0-31.0); Mean Corpuscular Volume 88.7 fL (78.0-98.0); Mean Platelet Volume 9.6 fL (7.4-10.4); Platelet Count 87 thou/uL (130-400); RBC Distribution Width 16.6 % (11.5-14.5); Red Blood Cell (RBC) Count 3.69 mill/uL (4.70-6.10)
[2020-04-13 06:21] LABS: Anion Gap 10 mmol/L (10-20); BUN (Urea Nitrogen) 12 mg/dL (8.4-25.7); Calc. Creatinine Clearance 155 mL/min (70-130); Calcium 7.8 mg/dL (7.8-10.44); Carbon Dioxide 26 mmol/L (22-29); Chloride 102 mmol/L (98-107); Estimated GFR-MDRD Greater than 90; Glucose 116 mg/dL (70-105); Potassium 3.7 mmol/L (3.5-5.1); Sodium 134 mmol/L (136-145)
[2020-04-13] MEDS: traMADol HCl 50 MG TAB PO SCH ×2 (06:32→11:30)
[2020-04-13 07:25] VITALS: BP 118/79; TEMP 98.2
[2020-04-13] MEDS: Famotidine 20 MG TAB PO SCH (08:52)
[2020-04-13] MEDS: DULoxetine 60 MG CAP PO SCH (08:52)
[2020-04-13] MEDS: Spironolactone 100 MG TAB PO SCH (08:52)
[2020-04-13] MEDS: Nadolol 40 MG TAB PO SCH (08:52)
[2020-04-13] MEDS: Furosemide 40 MG TAB PO SCH (08:52)
[2020-04-13] MEDS: cefTRIAXone\\ROCEPHIN 1 GM in Sodium Chloride 0.9% 100 ML IVPB SCH (11:29)
--- NOTE | 2020-04-13 11:53 | PRG ---
DATE OF SERVICE: 04/11/2020 SUBJECTIVE: This is a 54-year-old male with liver cirrhosis, chronic hepatitis C, and ascites. The patient hospitalized 2 days ago with abdominal pain and was found to have evidence of spontaneous bacterial peritonitis. He is on IV antibiotics. Tolerating diet. He has complained of abdominal pain. nausea or vomiting. Ascitic fluid does show evidence of spontaneous bacterial peritonitis. The ascitic fluid cell count has history of peritonitis. Cytology shows no does show some . OBJECTIVE: VITAL SIGNS: Afebrile, pulse is 75, blood pressure is 132/84. HEENT: He is mildly icteric. CARDIOVASCULAR SYSTEM: Normal heart sounds. LUNGS: Clear to auscultation. ABDOMEN: ascites. Mildly tender. No rebound or guarding. LABORATORY DATA: The ascitic fluid cell cytology came back negative for any malignancy. The blood culture is growing gram-negative rods, but the ascitic fluid no organisms seen. RECOMMENDATIONS: Low-salt diet. continue IV antibiotics. Hopefully, the patient can be discharged home in the next 24 to 48 hours on p.o. antibiotics. Job ID: [id number]
[2020-04-13] MEDS: Morphine 2 MG/ML VIAL SLOW IVP PRN (12:49)
--- NOTE | 2020-04-14 00:21 | DIS ---
DATE OF ADMISSION: 04/09/2020 DATE OF DISCHARGE: 04/13/2020 DISCHARGE DIAGNOSES: 1. Spontaneous bacterial peritonitis, resolving. 2. Bacteremia secondarily to Campylobacter species. 3. Hepatic cirrhosis with ascites. 4. Chronic hepatitis C. 5. Marijuana abuse. CONSULTATIONS: 1. Dr. Kelley with GI Service. 2. Dr. Marciano Phan with Infectious Disease Service. PERTINENT LABORATORY AND X-RAY FINDINGS: Sodium ranged between 132 to 134. Lactic acid level 1.1. Total bilirubin ranged between 1.5 to 1.6. AST ranged between 113-154, ALT ranged between 83-107, alkaline phosphatase ranged between 130-167. BNP 41. CBC showed a white blood cell count ranging between 4.0 to 9.8, hemoglobin ranged between 10.2 to 11.1, platelet count ranged between 64-101. ESR 25. INR 1.2. Urine drug screen dated 04/09/2020, positive for cannabinoids. COVID-19 PCR not detected on 04/09/2020. Blood cultures x2 dated 04/09/2020 positive for Campylobacter species. Ascitic fluid culture dated 04/09/2020, showed no growth at four days. Portable chest x-ray dated 04/09/2020, showed no acute cardiopulmonary process. Paracentesis cytology dated 04/09/2020, showed reactive mesothelial cells. HOSPITAL COURSE: The patient was initially admitted after presenting with increasing abdominal pain in the context of known hepatic cirrhosis with ascites in the context of chronic hepatitis C and questionable hemochromatosis. The patient was initially diagnosed with spontaneous bacterial peritonitis, initiated on IV Rocephin, undergoing evaluation of ascites showing no growth at four days. Blood cultures x2 were positive for Campylobacter species and the patient continued on IV Rocephin throughout the hospital course. The patient was resumed on his regular outpatient medications to include spironolactone, Lasix and lactulose. The patient was evaluated by the GI Service with recommendations to continue IV antibiotic therapy and serial monitoring. The patient was also evaluated by the Infectious Disease Service with recommendations to continue quinolone therapy after discontinuation of Rocephin to complete a 5-day course for spontaneous bacterial peritonitis. Overall, the patient did remain clinically stable during the hospital course with stable vital signs at the time of discharge. The patient tolerating regular oral intake and voiding appropriately. I have examined the patient at the time of discharge and discussed followup instructions. The patient verbalizes understanding and agreement, ready for discharge on 04/13/2020. DISCHARGE MEDICATIONS: 1. Levaquin 750 mg p.o. daily x5 days. 2. Spironolactone 100 mg p.o. daily. 3. Lactulose 30 mL p.o. q.i.d. 4. Cymbalta 60 mg p.o. daily. 5. Lasix 40 mg p.o. daily. 6. Tramadol 50 mg p.o. q.8 hours p.r.n. 7. Corgard 40 mg p.o. daily. FOLLOWUP: The patient may follow up with Dr. Kelley with GI Service and to call his office for appointment time and date. CONDITION ON DISCHARGE: Stable. ACTIVITY: Ad-hortencia. DIET: Heart healthy and low-sodium. CODE STATUS: Full. DISPOSITION: To home on 04/13/2020. TIME SPENT: Total time preparing and coordinating discharge is 36 minutes. Job ID: [id number]
--- NOTE | 2020-04-14 13:08 | PRG ---
DATE OF SERVICE: 04/10/2020 SUBJECTIVE: This is a 54-year-old male with abdominal pain and findings of spontaneous bacterial peritonitis. The patient is . The patient was hospitalized here . The patient came to the ER with severe abdominal pain and was found to have evidence of spontaneous bacterial peritonitis. He is on ceftriaxone. abdominal discomfort, pain. The pain is mild PHYSICAL EXAMINATION: GENERAL: He appears comfortable, in no distress. VITAL SIGNS: He is afebrile. Pulse is 99, blood pressure 130/85. CARDIOVASCULAR: LUNGS: LABORATORY DATA: Showed platelet count . Chemistry panel ALT , albumin 2.7 Microbiology, blood cultures ascitic fluid cytology is pending. RECOMMENDATIONS: 1. Continue antibiotics . 2. . Job ID: [id number]
--- NOTE | 2020-04-17 01:43 | PQF ---
CLINICAL DOCUMENTATION CLARIFICATION FORM: Dear : mercedes Mensah DO Date / Time: 04/16/2020 Please exercise your independent, professional judgment in responding to the clarification form. Clinical indicators are provided on the bottom of this form for your review Please check appropriate box(es): [ ] Sepsis due to: Due to: [ ] Device (please specify) [ ] Implant [ ] Graft [ ] Infusion Due to: [ ] Procedure (please specify) [ ] Severe sepsis with associated acute organ dysfunction: [ ] Acute Respiratory Failure [ ] Acute Kidney injury w/o ATN [ ] Acute Kidney Injury w ATN [ ] Encephalopathy (metabolic) (septic) [ ] Disseminated Intravascular Coagulopathy (DIC) [ ] Hepatic Failure [ ] Additional/Other: please specify: [ ] Septic Shock [ x ] Localized infection without sepsis [ ] SIRS due to non-infectious process (please specify etiology) [ ] with organ dysfunction [ ] without organ dysfunction [ ] Other diagnosis (Please specify if any) [ ] Unable to determine In addition, please specify: Present on Admission (POA): [ x ] Yes [ ] No [ ] Unable to determine Physician Signature: Date/Time: For continuity of documentation, please document condition throughout progress notes and discharge summary. Thank You. To be completed by CDI/Coding staff for physician review: Present Clinical Indicators - Signs / Symptoms / Labs Results and Location in Medical Record [ ] Altered mental status, increased confusion, obtunded [x] Fever or hypothermia (<96.8 F/36 C or > 100.4 F/38C) Fever ED provider report on 04/09 [ ] Respiratory rate >20/min, hypoxemia, and or hypercapnia [x] Heart Rate/Tachycardia (>90 bpm), SBP<100mmHg 102 Vitals on 04/10 [ ] Acute organ dysfunction/failure [ ] Metabolic acidosis Lactic Acid >2mmol/L OR 36mg/dL, [ ] Oliguria , increase BUN/Cr, decreased GFR, elevated liver enzymes [ ] Coag abnormalities, thrombocytopenia plts <100k [ ] Shock-hypotension resistant to IV fluid boluses [x] WBC count (>12,000/mm^4 or <4000/mm^3 or 70% neuts, 10% bands) WBC -4.0 Laboratory on 04/13 [x] Spontaneous bacterial peritonitis Discharge summary on 04/13 [x] Bacteremia secondarily to campylobacter species Discharge summary on 04/13 Present Risk Factors Results and Location in Medical Record [x] Infection/Bacteremia Discharge summary on 04/13 [ ] Pneumonia, UTI, infected wound, gangrenous gall bladder Diabetes or Cancer [ ] Surgery / surgical instrumentation / trauma Ruptured/perforated bowel, ruptured appendix [ ] Immunosuppression [ ] Advancing Age Present Treatments Results and Location in Medical Record [ ] Initiation Sepsis Protocol ICU [ ] Daily CBC, blood/sputum/wound cx [ ] ID Consult [x] Rocephin 1gm Medication on 04/09 [x] Rocephin 1gm IV Medication from 04/10 to 04/13 [ ] Vasopressors, meds [ ] Consultants; ID, GI, Pulmonary, Hematology CDS/Director Of Operations Support Signature: AAS Phone #: Date/Time: 04/16/2020 This is a permanent part of the Medical Record [facility]
== END 2020-04-13 13:32 | disposition home or self-care (01) | DRG 372 ==
LOC: ERS 08:20 → OBSVTOIN 12:25 → T4-A 12:25
PROVIDERS: ADMIT Emergency Medicine; ATTEND Family Medicine
DX: K65.2 Spontaneous bacterial peritonitis (principal); R18.8 Other ascites; I85.10 Secondary esophageal varices without bleeding; E87.1 Hypo-osmolality and hyponatremia; K76.6 Portal hypertension; R78.81 Bacteremia; I10 Essential (primary) hypertension; K74.60 Unspecified cirrhosis of liver; B19.20 Unspecified viral hepatitis C without hepatic coma; E83.110 Hereditary hemochromatosis; F12.10 Cannabis abuse, uncomplicated; F41.9 Anxiety disorder, unspecified; F43.10 Post-traumatic stress disorder, unspecified; Z88.6 Allergy status to analgesic agent; Z90.49 Acquired absence of other specified parts of digestive tract; Z98.890 Other specified postprocedural states; Z79.899 Other long term (current) drug therapy; Z20.828 Contact with and (suspected) exposure to other viral communicable diseases
CPT/HCPCS: 36415; 49083; 71045; 80048; 80076; 80306; 81003; 83605; 83690; 83880; 84484; 85025; 85060; 85610; 85652; 85730; 87040; 87070; 87205; 87635; 88112; 88305; 88342; 89051; 93005; 94760; 96365; 96367; 96375; G0378; J0696; J1200; J2270; J2405; J2765; J3490; U0003

== ENCOUNTER 2020-06-11 13:31 | Inpatient (IN) | payer OTHER ==
[2020-06-11] MEDS ORDERED: Iopamidol-370 76% 500 ML 1 ML ONE (14:15)
[2020-06-11] MEDS ORDERED: Vancomycin 1 GM/200 ML BAG ONE (15:39)
[2020-06-11] MEDS ORDERED: Cefepime 2 GM VIAL ONE (15:39)
[2020-06-11] MEDS ORDERED: Morphine 4 MG/ML VIAL ONE (15:39)
[2020-06-11] MEDS ORDERED: Furosemide 40 MG/4 ML VIAL ONE (15:40)
--- NOTE | 2020-06-11 16:07 | RAD ---
Chest one view HISTORY: Chest pain. Dyspnea. COMPARISON: 04/09/2020. FINDINGS: Cardiac silhouette and pulmonary vasculature are unremarkable. Mediastinum is midline. No confluent airspace consolidation or evidence of pneumothorax. Postoperative changes of each shoulder. IMPRESSION : No acute abnormalities are demonstrated
[2020-06-11 16:12] LABS: #Lymphocytes 1.3 thou/uL (1.20-3.40); #Monocytes 0.7 thou/uL (0.11-0.59); #Neutrophils 3.2 thou/uL (1.40-6.50); %Basophils 0.4 % (0.0-1.0); %Eosinophils 0.8 % (0.0-10.0); %Monocytes 12.6 % (0.0-10.0); %Neutrophils 61.2 % (42.0-75.0); Hemoglobin 10.2 g/dL (14.0-18.0); Mean Corpuscular HGB CONC 32.3 g/dL (32.0-36.0); Mean Corpuscular Hemoglobin 27.1 pg (27.0-31.0); Mean Corpuscular Volume 83.9 fL (78.0-98.0); Mean Platelet Volume 10.5 fL (7.4-10.4); Platelet Count 82 thou/uL (130-400); RBC Distribution Width 16.5 % (11.5-14.5); Red Blood Cell (RBC) Count 3.78 mill/uL (4.70-6.10); White Blood Cell (WBC) Count 5.2 thou/uL (4.8-10.8)
[2020-06-11 16:15] LABS: INR-International Normal Ratio 1.2; PTT 31.5 sec (22.9-36.1); Prothrombin Time 15.9 sec (12.0-14.7)
[2020-06-11 16:25] LABS: Bilirubin Negative (Negative); Blood, Urine Negative (Negative); Clarity Clear (Clear); Glucose, Urine (Dipstick) Normal (Negative); Ketone, Urine Negative (Negative); Leukocyte Negative Leu/uL (Negative); Nitrite Negative (Negative); Protein, Urine (Dipstick) Negative (Neg-Trace); Specific Gravity, Urine 1.015 (1.002-1.036); Urobilinogen Normal mg/dL (Less than 2)
[2020-06-11 16:34] LABS: ALT (SGPT) 70 U/L (8-55); AST (SGOT) 106 U/L (5-34); Albumin 3.2 g/dL (3.5-5.0); Alkaline Phosphatase 120 U/L (40-110); Anion Gap 10 mmol/L (10-20); BUN (Urea Nitrogen) 14 mg/dL (8.4-25.7); Bilirubin, Total 1.5 mg/dL (0.2-1.2); CK (CPK) 56 U/L (30-200); Calc. Creatinine Clearance 0 mL/min (70-130); Calcium 8.1 mg/dL (7.8-10.44); Carbon Dioxide 28 mmol/L (22-29); Chloride 103 mmol/L (98-107); Globulin 3.3 g/dL (2.4-3.5); Glucose 63 mg/dL (70-105); Potassium 4.1 mmol/L (3.5-5.1); Protein, Total 6.5 g/dL (6.0-8.3); Sodium 137 mmol/L (136-145)
[2020-06-11] MEDS ORDERED: Ondansetron ODT 4 MG TAB PO PRN (17:45)
[2020-06-11] MEDS ORDERED: Senokot S 8.6-50 MG TAB PO PRN (17:45)
[2020-06-11] MEDS ORDERED: Bisacodyl 5 MG TAB PO PRN (17:45)
[2020-06-11] MEDS ORDERED: Acetaminophen 325 MG TAB PO PRN (17:45)
[2020-06-11] MEDS ORDERED: Ondansetron PF 4 MG/2 ML Vial IVP PRN (17:45)
[2020-06-11] MEDS ORDERED: Calcium Carbonate 500 MG ChewTAB PO PRN (17:45)
[2020-06-11] MEDS ORDERED: Dextrose 50% Abboject 50 ML SYRINGE SLOW IVP PRN (17:57)
[2020-06-11] MEDS ORDERED: Dextrose 5% in Water 1,000 ML IV PRN (17:57)
--- NOTE | 2020-06-11 18:10 | PDOC.HHP ---
Hospitalist HPI - History of Present Illness Lower extremity swelling, abdominal swelling History of Present Illness: PCP: None The patient is a 54-year-old male with a past medical history liver cirrhosis, hepatitis C, and hemochromatosis that presents emergency department with above complaint. The patient reports developing swelling to his bilateral lower extremities for the past for 5 days. He reports that the swelling progressed up into his abdomen over the past 1 to 2 days. He reports moderate pain to his bilateral lower extremities, worse on the right by his ankle, described as "getting hit with a hammer" exacerbated and relieved by nothing. He reports that he does get swelling to his lower extremities quite often, however, it usually goes away on its own after a couple of days. He also reports swelling to his abdomen. He reports that his abdomen is mildly tender and he vomited x1 episode yesterday. He reports his emesis was blood-tinged which he thinks was related to a nosebleed that he developed from vomiting. He denies any melena or hematochezia. He denies any lightheadedness or shortness of breath. He denies any chest pain or heart palpitations. He reports subjective chills at night. He reports approximate 10 pound weight gain over the past month. He reports that he is compliant on his home medications which include Lasix 20 mg twice daily, spironolactone daily, lactulose and recently started rifaximin. He has a prescription for Epclusa, however, he has not started that medication yet. Denies any dysuria or hematuria. He has no other complaints at this time. ED Course: Vital signs temperature 97.7, BP 150/89, HR 86, RR 19, 100% room air CXR no acute process Sodium 137, glucose 63, creatinine 0.66, BUN 14 AST 106 ALT 70 PT 15.9, PTT 31.5, INR 1.2 WBC 5.2, lactic acid 1.6 UA unremarkable Medication ministration: Cefepime IVPB Vancomycin IVPB Lasix 80 mg IVP Morphine IVP Hospitalist ROS - Review of Systems All other systems reviewed; all pertinent +/- noted in HPI/Subj - Medication Medications: Medication Instructions Recorded Confirmed Type DULoxetine [Cymbalta] 60 mg PO DAILY 03/16/20 05/01/20 History Furosemide 40 mg PO DAILY 03/16/20 05/01/20 History Lactulose [Constulose] 30 ml PO QID 03/16/20 05/01/20 History Spironolactone [Aldactone] 100 mg PO DAILY 03/16/20 05/01/20 History Magnesium 250 mg PO DAILY 05/01/20 05/01/20 History Allergies aspirin Adverse Reaction (stomach mixon) causes stomach to burn 06/11/20 17:45 Resuscitation Status Routine Resuscitation Status: FULL: Full Resuscitation Co-Sign Provider: Discussed with: patient Additional comments: Narcisa jacques at [phone] Hospitalist History - Past Medical History Source: patient, old records Cardiac: reports: HTN (Treated with lifestyle) [employer]: reports: Other (Traumatic brain injury) Heme/Onc: reports: Hemochromatosis (Hereditary) Hepatobiliary: reports: Cirrhosis, Hep A/B/C (Hep C) Psych: reports: Anxiety, Other (PTSD) - Past Surgical History Past Surgical History: reports: Appendectomy, Hernia Repair, Other (Unknown surgery for TBI (plate and head), bilateral rotator cuff) - Family History Family History: reports: Other (Noncontributory to this case) - Social History Smoking Status: Never smoker Alcohol: reports: None (He quit drinking greater than 10 years ago, history 35 years 18 beers per day) Drugs: reports: none, marijuana (Says smokes sometimes daily) Living Situation: Other (Lives with shirley) Occupation: Does not work Activity level: independent ambulation - Exam General Appearance: NAD, awake alert. negative: ill appearing General - other findings: Uncomfortable Eye: anicteric sclera ENT: normocephalic atraumatic Neck: supple, no JVD Heart: RRR, no murmur, no gallops, no rubs, normal peripheral pulses Respiratory: CTAB, no wheezes, no rales, no ronchi, normal chest expansion Gastrointestinal: soft, no guarding, no rigidity, tender to palpation (Throughout), distended Extremities: no cyanosis Extremities - other findings: 3+ edema bilateral lower extremities Skin: negative: no rashes (Erythema and warmth, TTP bilateral lower extremities, no open lesions) Neurological: no focal deficits Musculoskeletal: normal tone, normal strength Psychiatric: normal affect, A&O x 3 Hospitalist Results - Labs Result Diagrams: 06/11/20 15:52 06/11/20 15:52 Lab results: WBC 5.2 thou/uL (4.8-10.8) 06/11/20 15:52 Hgb 10.2 g/dL (14.0-18.0) L 06/11/20 15:52 Hct 31.7 % (42.0-52.0) L 06/11/20 15:52 MCV 83.9 fL (78.0-98.0) 06/11/20 15:52 Plt Count 82 thou/uL (130-400) L 06/11/20 15:52 Neutrophils % 61.2 % (42.0-75.0) 06/11/20 15:52 Sodium 137 mmol/L (136-145) 06/11/20 15:52 Potassium 4.1 mmol/L (3.5-5.1) 06/11/20 15:52 Chloride 103 mmol/L (98-107) 06/11/20 15:52 Carbon Dioxide 28 mmol/L (22-29) 06/11/20 15:52 BUN 14 mg/dL (8.4-25.7) 06/11/20 15:52 Creatinine 0.66 mg/dL (0.7-1.3) L 06/11/20 15:52 Glucose 63 mg/dL (70-105) L 06/11/20 15:52 Lactic Acid 1.6 mmol/L (0.5-2.2) 06/11/20 15:52 Calcium 8.1 mg/dL (7.8-10.44) 06/11/20 15:52 Total Bilirubin 1.5 mg/dL (0.2-1.2) H 06/11/20 15:52 AST 106 U/L (5-34) H 06/11/20 15:52 ALT 70 U/L (8-55) H 06/11/20 15:52 Alkaline Phosphatase 120 U/L (40-110) H 06/11/20 15:52 Creatine Kinase 56 U/L (30-200) 06/11/20 15:52 B-Natriuretic Peptide 76.2 pg/mL (0-100) 06/11/20 15:52 Serum Total Protein 6.5 g/dL (6.0-8.3) 06/11/20 15:52 Albumin 3.2 g/dL (3.5-5.0) L 06/11/20 15:52 Urine Ketones Negative mg/dL (Negative) 06/11/20 15:55 Urine Blood Negative (Negative) 06/11/20 15:55 Urine Nitrite Negative (Negative) 06/11/20 15:55 Ur Leukocyte Esterase Negative Aubree/uL (Negative) 06/11/20 15:55 - Radiology Interpretation CT scan - abdomen Status: pending Chest x-ray Status: report reviewed by me Additional Comment: No acute cardiopulmonary process US - abdomen Status: pending Hospitalist H&P A/P - Problem (1) Cellulitis of both lower extremities Code(s): L03.115 - CELLULITIS OF RIGHT LOWER LIMB; L03.116 - CELLULITIS OF LEFT LOWER LIMB Status: Acute (2) Cirrhosis of liver with ascites Code(s): K74.60 - UNSPECIFIED CIRRHOSIS OF LIVER; R18.8 - OTHER ASCITES Status: Acute (3) Abdominal pain Code(s): R10.9 - UNSPECIFIED ABDOMINAL PAIN Status: Acute (4) GERD (gastroesophageal reflux disease) Code(s): K21.9 - GASTRO-ESOPHAGEAL REFLUX DISEASE WITHOUT ESOPHAGITIS Status: Chronic (5) Hemochromatosis, hereditary Code(s): E83.110 - HEREDITARY HEMOCHROMATOSIS Status: Chronic (6) PTSD (post-traumatic stress disorder) Code(s): F43.10 - POST-TRAUMATIC STRESS DISORDER, UNSPECIFIED Status: Chronic - Plan Plan: 54/M with PMH cirrhosis, hep C, ascites and esophageal varices presents for bilateral lower extremity swelling abdominal swelling. Admit to telemetry floor, inpatient status. Expected length stay greater than 2 midnights. #Cellulitis of both lower extremities Continue vancomycin and cefepime. Update tetanus. Elevate extremities when at rest. Venous ultrasound to rule out DVT. #Cirrhosis of liver with ascites Reports abdominal pain is subjective fever/chills at home. 10 pound weight gain in 1 month. Reports drinking a lot of water at home. A: abdomen TTP WBC 5.2, LA 1.6. Continue Vanc and add zosyn. Order CT abdomen pelvis Abdominal ultrasound to assess for ascites. Continue Lasix 40 mg IVP twice daily Restart home dose spironolactone, lactulose, rifaximin. Hold anticoagulation for now, pending radiology. Daily weight, sodium restriction, fluid restriction. Consult dietary. Accuchecks, presented BG 63. #Abdominal pain Likely related to problem #2. #GERD Chronic. Protonix daily. #Hemochromatosis, hereditary Chronic, appears stable. #PTSD Denies SI/HI. Takes duloxetine at home. Restart home dose duloxetine No SCDs for DVT prophylaxis. No pharmacological DVT prophylaxis, pending ABD US and CT. CODE STATUS is full code. Contact his Narcisa watson at [phone]. Discussed the case with attending physician, Dr. Price, who agrees with plan of care.
--- NOTE | 2020-06-11 18:27 | ULT ---
Bilateral lower extremity venous Doppler ultrasound: 06/11/2020 COMPARISON: None HISTORY: Pain, edema, assess for DVT TECHNIQUE: Multiplanar grayscale sonographic imaging of the venous structures of bilateral lower extr emities obtained with color flow and spectral analysis FINDINGS: Bilateral common femoral veins, greater saphenous veins, profunda femoral veins, femoral ve ins, popliteal veins, and posterior tibial veins are patent. There is normal blood flow, augmentation, and compression within the deep venous system bilaterally. No evidence for DVT on eithe r side IMPRESSION: No evidence for deep venous thrombosis of either lower extremity.
[2020-06-11] MEDS ORDERED: TETANUS AND DIPHTHERIA TOX/PF 0.5 ML DISP.SYRIN IM ONE (21:00)
[2020-06-11] MEDS ORDERED: Enoxaparin Sodium 40 MG/0.4 ML SYRINGE SC SCH (21:00)
--- NOTE | 2020-06-11 21:28 | ULT ---
Limited abdominal ultrasound-ascites search 06/11/2020 HISTORY: Evaluate for ascites TECHNIQUE: Multiplanar grayscale sonographic imaging of the abdomen as below. Findings: The hepatic parenchyma is heterogeneous and demonstrates an irregular margin, evidence of c irrhosis. The spleen appears enlarged suggesting portal hypertension. There is moderate volume ascites noted, most prominent in the left lower quadrant, the right lower quadrant, and the perihepat ic region. IMPRESSION: Cirrhotic configuration of the liver with moderate ascites as above.
[2020-06-11] MEDS: Rifaximin 550 MG TAB PO SCH (21:39)
[2020-06-11 21:43] VITALS: BMI 25.9
[2020-06-11] MEDS ORDERED: CEFAZOLIN 2 GM in Premix Bag 1 BAG IVPB SCH (22:00)
[2020-06-11] MEDS: Morphine 4 MG/ML VIAL SLOW IVP PRN (22:24)
--- NOTE | 2020-06-11 22:55 | CT ---
CT of the abdomen and pelvis: 06/11/2020 COMPARISON: None HISTORY: Abdominal pain and swelling TECHNIQUE: Axial CT imaging at 5 mm intervals from lung bases through pubic symphysis with IV contras t. Coronal and sagittal reformatted imaging obtained. FINDINGS: The imaged lung bases demonstrate mild atelectatic change. The hepatic parenchyma demonstra amber a cirrhotic configuration. The portal vein appears patent. The spleen is enlarged measuring 17.6 cm. There is free fluid adjacent to the liver and spleen extending into the paracolic gutters, r ight greater than left. There is free fluid within the pelvis. The gallbladder, pancreas, adrenal glands, and kidneys demonstrate no acute findings. Limited assessment of the bowel demonstrates no evidence for obstruction. There are varices in the anterior upper abdomen, the paraesophageal region, the gastrohepatic ligamen t, and the splenic hilum. No significant abdominal or pelvic lymphadenopathy. Review of the osseous structures demonstrates no worrisome lytic or blastic bone lesions. IMPRESSION: Cirrhotic configuration of the liver. Splenomegaly, ascites within the abdomen/pelvis, an d multi focal varices are consistent with portal hypertension.
[2020-06-12] MEDS: Piperacillin/Tazobactam 3.375 GM in Sodium Chloride 0.9% 100 ML IVPB SCH ×3 (00:29→12:00)
[2020-06-12] MEDS ORDERED: TETANUS AND DIPHTHERIA TOX/PF 0.5 ML DISP.SYRIN IM ONE (00:45)
[2020-06-12] MEDS: Vancomycin HCl 1.25 GM in Sodium Chloride 0.9% 250 ML 250 ML IVPB SCH ×2 (01:03→10:27)
[2020-06-12] MEDS ORDERED: Cefepime 2 GM in Sodium Chloride 0.9% 100 ML IVPB SCH (04:00)
[2020-06-12 05:23] LABS: #Lymphocytes 0.8 thou/uL (1.20-3.40); #Monocytes 0.4 thou/uL (0.11-0.59); %Basophils 0.3 % (0.0-1.0); %Eosinophils 1.3 % (0.0-10.0); %Lymphocytes 24.8 % (21.0-51.0); %Monocytes 11.8 % (0.0-10.0); %Neutrophils 61.8 % (42.0-75.0); Hemoglobin 9.3 g/dL (14.0-18.0); Mean Corpuscular HGB CONC 31.6 g/dL (32.0-36.0); Mean Corpuscular Hemoglobin 26.5 pg (27.0-31.0); Mean Corpuscular Volume 83.7 fL (78.0-98.0); Mean Platelet Volume 11.5 fL (7.4-10.4); Platelet Count 66 thou/uL (130-400); RBC Distribution Width 16.5 % (11.5-14.5); Red Blood Cell (RBC) Count 3.51 mill/uL (4.70-6.10); White Blood Cell (WBC) Count 3.3 thou/uL (4.8-10.8)
[2020-06-12 05:37] LABS: ALT (SGPT) 60 U/L (8-55); AST (SGOT) 94 U/L (5-34); Albumin 2.8 g/dL (3.5-5.0); Alkaline Phosphatase 109 U/L (40-110); Anion Gap 11 mmol/L (10-20); BUN (Urea Nitrogen) 14 mg/dL (8.4-25.7); Bilirubin, Total 1.3 mg/dL (0.2-1.2); Calc. Creatinine Clearance 156 mL/min (70-130); Calcium 7.7 mg/dL (7.8-10.44); Carbon Dioxide 27 mmol/L (22-29); Chloride 102 mmol/L (98-107); Globulin 2.9 g/dL (2.4-3.5); Glucose 113 mg/dL (70-105); Potassium 3.5 mmol/L (3.5-5.1); Protein, Total 5.7 g/dL (6.0-8.3); Sodium 136 mmol/L (136-145)
[2020-06-12] MEDS: Furosemide 40 MG/4 ML VIAL SLOW IVP SCH ×2 (06:18→15:27)
[2020-06-12] MEDS: Morphine 4 MG/ML VIAL SLOW IVP PRN ×4 (06:26→21:16)
[2020-06-12 08:08] LABS: SARS-CoV-2 MS2 Positive; SARS-CoV-2 N Gene Negative; SARS-CoV-2 S Gene Negative; SARS-CoV-2 by NAA Not Detected (NotDetected); SARS-CoV-2 orf1ab Negative
[2020-06-12] MEDS: Rifaximin 550 MG TAB PO SCH ×2 (08:42→21:16)
[2020-06-12] MEDS: DULoxetine 60 MG CAP PO SCH (08:42)
[2020-06-12] MEDS: Spironolactone 100 MG TAB PO SCH (08:42)
[2020-06-12] MEDS: Pantoprazole 40 MG VIAL IVP SCH (08:42)
[2020-06-12] MEDS ORDERED: Lidocaine 1% PF 5 ML VIAL ONE (13:12)
[2020-06-12] MEDS ORDERED: Sodium Bicarbonate 2.5 MEQ/5 ML VIAL ONE (13:12)
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
--- NOTE | 2020-06-12 15:12 | ULT ---
Sonographic guided paracentesis HISTORY: Ascites. Concern for peritonitis. FINDINGS: After explaining the procedure and answering all questions, sonographic survey showed a sma ll amount of free fluid within the abdomen. Patient made to clear his desire to attempt maximum fluid aspiration. Right lateral approach was planned. Sterile technique, buffered local anesthesia, sonographic guidance, and a right lateral approach were used to carefully advance a 19-gauge Yueh needle and catheter into the free fluid. A total volume of 50 cc light yellow liquid was obtained and submitted to pathology for evaluation. Catheter was rem erum with minimal fluid remaining. Patient tolerated the procedure well and was returned in unchanged condition. IMPRESSION : Successful paracentesis. 50 cc. Pathology pending.
[2020-06-12 16:29] LABS: Vancomycin, Trough 20.3 ug/mL
[2020-06-12] MEDS ORDERED: Vancomycin 1 GM in Premix Bag 1 BAG IVPB SCH (16:30)
[2020-06-12 16:32] LABS: RBC Count-Automated (BF) 2129 /cu.mm; WBC/Nucleated-Auto (BF) 434 uL
[2020-06-12 16:37] LABS: BF Color Yellow; Body Fluid Source Ascites Body Fluid; Clarity Cloudy/Turbid (Clear); Tube # EDTA
[2020-06-12 16:39] LABS: BF Segmented Neutrophils 19 %; Cell Count Non Hematic 50 %; Lymphocytes 31 %
--- NOTE | 2020-06-12 18:42 | PDOC.HOSPP ---
- Subjective Encounter Date: 06/12/20 Encounter Time: 10:00 Subjective: Patient seen and examined for abdominal pain with lower extremity cellulitis. Denies any new complaints. No nausea or vomiting reported - Objective Vital Signs & Weight: Vital Signs (12 hours) Temp Pulse Resp BP Pulse Ox 06/12/20 16:00 97.9 F 82 16 146/83 H 06/12/20 12:00 97.6 F 75 16 139/86 06/12/20 08:37 97.7 F 89 20 152/95 H 06/12/20 08:00 97 Weight Weight 201 lb 8.745 oz I&O: 06/11/20 06/12/20 06/13/20 06:59 06:59 06:59 Intake Total 1990 Output Total 5000 Balance -3010 Result Diagrams: 06/12/20 04:23 06/12/20 04:23 Additional Labs: Accuchecks 06/12/20 06/11/20 05:16 20:50 POC Glucose 89 142 H Abnormal Lab Results - Last 48 hrs 06/11/20 15:52: Creatinine 0.66 L, Total Bilirubin 1.5 H, AST 106 H, ALT 70 H, Alkaline Phosphatase 120 H, Albumin 3.2 L, Albumin/Globulin Ratio 1.0 L 06/11/20 15:52: PT 15.9 H 06/11/20 15:52: RBC 3.78 L, Hgb 10.2 L, Hct 31.7 L, RDW 16.5 H, Plt Count 82 L, MPV 10.5 H, Monocytes % 12.6 H, Monocytes # 0.7 H 06/11/20 15:52: ESR Westergren 21 H 06/12/20 04:23: Calcium 7.7 L, Total Bilirubin 1.3 H, AST 94 H, ALT 60 H, Serum Total Protein 5.7 L, Albumin 2.8 L, Albumin/Globulin Ratio 1.0 L 06/12/20 04:23: WBC 3.3 L, RBC 3.51 L, Hgb 9.3 L, Hct 29.4 L, MCH 26.5 L, MCHC 31.6 L, RDW 16.5 H, Plt Count 66 L, MPV 11.5 H, Monocytes % 11.8 H, Lymphocytes # 0.8 L 06/12/20 14:00: Fluid Clarity Cloudy/Turbid H Radiology Reviewed by me: Yes (CT abdomenportal hypertension) EKG Reviewed by me: Yes (Sinus rhythm on telemetry) Hospitalist ROS - Review of Systems Constitutional: reports: weakness. denies: fever, chills, sweats, malaise, other Cardiovascular: denies: chest pain, palpitations, orthopnea, paroxysmal noc. dyspnea, edema, light headedness, other - Medication Medications: Active Medications Generic Name Dose Route Start Last Admin Trade Name Freq PRN Reason Stop Dose Admin Acetaminophen 650 mg 06/11/20 17:45 06/11/20 21:39 Acetaminophen 325 Mg Tab PO 650 mg Q6H PRN Administration Headache/Fever/Mild Pain (1-3) Duloxetine HCl 60 mg 06/12/20 09:00 06/12/20 08:42 Duloxetine 60 Mg Cap PO 60 mg DAILY GADIEL Administration Furosemide 40 mg 06/12/20 06:00 06/12/20 15:27 Furosemide 40 Mg/4 Ml Vial SLOW IVP 40 mg 0600,1400 GADIEL Administration Lactulose 20 gm 06/11/20 21:00 06/12/20 17:51 Lactulose 20 Gm/30 Ml Udcup PO 20 gm QID GADIEL Administration Morphine Sulfate 4 mg 06/11/20 22:19 06/12/20 18:05 Morphine 4 Mg/Ml Vial SLOW IVP 4 mg Q3H PRN Administration Moderate to Severe Pain (6-10) Pantoprazole Sodium 40 mg 06/12/20 09:00 06/12/20 08:42 Pantoprazole 40 Mg Vial IVP 40 mg DAILY GADIEL Administration Rifaximin 550 mg 06/11/20 21:00 06/12/20 08:42 Rifaximin 550 Mg Tab PO 550 mg BID GADIEL Administration Spironolactone 100 mg 06/12/20 09:00 06/12/20 08:42 Spironolactone 100 Mg Tab PO 100 mg DAILY GADIEL Administration - Exam General Appearance: awake alert, ill appearing Neck: supple, no JVD Heart: RRR, no gallops, no rubs, normal peripheral pulses Respiratory: no wheezes, no rales, no ronchi Respiratory - other findings: Diminished air entry at base Gastrointestinal: soft, normal bowel sounds, no guarding, no rigidity Gastrointestinal - other findings: Mild generalized tenderness Extremities: no cyanosis, no clubbing, 2+ LE edema Extremities - other findings: Bilateral lower extremity erythema Neurological: no new deficit Hosp A/P - Plan DVT proph w/SCDs (No heparin or Lovenox due to thrombocytopenia) Abdominal pain/swellingprobably due to symptomatic ascitesrule out SBP Bilateral lower extremity erythema probably due to cellulitis Chronic hepatitis C History of hemochromatosis GERD History of PTSD Pancytopenia/Coagulopathy/abnormal LFTs due to cirrhosis History of esophageal varices with recent EGD History of cannabis abuse History of SBP in 04/18 Plan: Paracentesis today. Await GI input. Will consult infectious disease for questionable bilateral lower extremity cellulitis. Will continue Lasix along with spironolactone. A.m. labs. Continue other medications as above.
[2020-06-13] MEDS: Furosemide 40 MG/4 ML VIAL SLOW IVP SCH ×2 (05:21→13:14)
[2020-06-13] MEDS: Morphine 4 MG/ML VIAL SLOW IVP PRN ×5 (05:23→21:43)
[2020-06-13 05:47] LABS: #Lymphocytes 0.8 thou/uL (1.20-3.40); #Monocytes 0.4 thou/uL (0.11-0.59); #Neutrophils 2.6 thou/uL (1.40-6.50); %Eosinophils 1.1 % (0.0-10.0); %Lymphocytes 20.3 % (21.0-51.0); %Monocytes 10.9 % (0.0-10.0); %Neutrophils 66.6 % (42.0-75.0); Mean Corpuscular HGB CONC 31.7 g/dL (32.0-36.0); Mean Corpuscular Hemoglobin 26.5 pg (27.0-31.0); Mean Corpuscular Volume 83.5 fL (78.0-98.0); Mean Platelet Volume 11.1 fL (7.4-10.4); Platelet Count 73 thou/uL (130-400); RBC Distribution Width 16.6 % (11.5-14.5)
[2020-06-13 06:04] LABS: ALT (SGPT) 65 U/L (8-55); AST (SGOT) 104 U/L (5-34); Albumin 2.9 g/dL (3.5-5.0); Alkaline Phosphatase 111 U/L (40-110); Anion Gap 14 mmol/L (10-20); BUN (Urea Nitrogen) 15 mg/dL (8.4-25.7); Bilirubin, Total 1.5 mg/dL (0.2-1.2); Calc. Creatinine Clearance 156 mL/min (70-130); Carbon Dioxide 27 mmol/L (22-29); Chloride 100 mmol/L (98-107); Globulin 3.1 g/dL (2.4-3.5); Glucose 96 mg/dL (70-105); Potassium 3.8 mmol/L (3.5-5.1); Sodium 137 mmol/L (136-145)
--- NOTE | 2020-06-13 07:33 | CON ---
DATE OF CONSULTATION: 06/12/2020 REASON FOR CONSULT: Worsening edema and ascites. HISTORY OF PRESENT ILLNESS: Mr. Mccall is 54-year-old gentleman with cirrhosis and hepatitis C and hemochromatosis who typically follows with the [facility], seems recently, he was in this facility in February at which time he was seen by Dr. Kelley, had variceal hemorrhage, which required banding. He also had spontaneous bacterial peritonitis. He had upper endoscopy for repeat banding with Dr. Kelley on 05/05/2020, subsequently, he was referred to Hepatology in [place], where they were going to start Epclusa, for chronic hepatitis C. That medicine arrived to him yesterday, but he has not started taking it. He actually came to the hospital secondary to not being able to walk and worsening swelling in his legs and feet. He notes his abdomen is about the same, but he notes no melena or hematemesis. He does have some low-grade confusion. He admits he tries to stay on low-salt diet. The edema in his legs has been a little bit worse in the last few days. PAST MEDICAL HISTORY: 1. 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 2. Hepatitis C, has not been treated in the past. He has Epclusa now, which he is supposed to start soon. 3. Hemochromatosis was previously treated with phlebotomy, which he has not had for several months. 4. Campylobacter bacteremia last year. 5. episodes of SBP. 6. History of variceal hemorrhage with 2 bandings, last on 05/05/2020. 7. History of hepatic encephalopathy. PAST SURGICAL HISTORY: Hernia repair and appendectomy. SOCIAL HISTORY: Abstinent from alcohol for over 10 years. Quit smoking. He does use marijuana at times. He is disabled. Lives with his . She went home to walk the dogs today. ALLERGIES: DYSPEPSIA WITH NSAIDS. FAMILY HISTORY: Negative for liver disease or colorectal cancer. HOME MEDICATIONS: 1. Spironolactone 100 mg once a day. 2. Magnesium. 3. Lactulose. 4. Furosemide 20 mg p.o. b.i.d. 5. Duloxetine 60 mg a day. Present Medications: 1. Tylenol. 2. Dulcolax. 3. Tums. 4. Cymbalta. 5. Lasix. 6. Glucagon. 7. Lactulose. 8. Morphine. 9. Zofran. 10. Protonix. 11. Xifaxan. 12. Aldactone 100 mg daily. 13. Furosemide 40 IV q.12. REVIEW OF SYSTEMS: Negative for melena, hematochezia, or hematemesis. Negative for confusion. Negative for falls. Negative fever, chills. Negative for diarrhea. Negative for dysuria, frequency, or urgency. PHYSICAL EXAMINATION: VITAL SIGNS: Temperature 97.7, pulse 89, blood pressure 150/95. GENERAL: He has temporal wasting. NECK: Supple without abnormalities. LUNGS: Clear. HEART: Regular without clicks or murmurs. ABDOMEN: Protuberant with shifting dullness and fluid wave. There is no palpable hepatosplenomegaly. There were few spider angiomas in the chest and abdomen. EXTREMITIES: Reveal muscle wasting. He has purpura on his legs bilaterally below the shins, vasculitis-like appearance. He has mild asterixis. NEUROLOGIC: He is alert and oriented to person, place and time. He cannot remember the names of all of his doctors, the ones who are out of town. LABORATORY DATA: White count 3.3, hemoglobin 9.3, platelet count 66,000, INR 1.2. Sodium 136, potassium 3.5, chloride 102, BUN and creatinine of 14 and 0.7. He was 0.66 yesterday. Bilirubin is 1.3. AST and ALT are 94 and 60, alkaline phosphatase 109, protein 5.7, albumin 2.8. Urinalysis is clear. COVID negative. IMAGING: A CAT scan of the abdomen and pelvis showed a cirrhotic liver. No masses. The patient has just gotten back from ultrasound for a tap to rule out SBP, the results of which are pending. ASSESSMENT: 1. Readmitted for anasarca and swelling. Normal renal function. Need to rule out SBP. There have been no signs of GI bleed at this admission. 2. Prior history of variceal hemorrhage, status post banding x2, last a month ago. He will need a followup banding with his moveman, Dr. Kelley in the outpatient setting. 3. Hepatitis C, decompensated. He has been started on Epclusa, he has that and he can start it as soon as he is discharged from the hospital. 4. I agree with Dr. 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 The Hepatitis C medicine will treat this. I would not add a steroid at this point in time. 5. Hepatic encephalopathy. We will continue rifaximin and lactulose. 6. Continue diuretics. When he goes home, possibly he could go home on 100 b.i.d. of Aldactone and 40 b.i.d. of Lasix but he will need to have a close followup with Dr. Kelley to recheck his renal function if we are going to double up his medicine. 7. If his tap is negative for SBP, I think he can go home tomorrow. Job ID: [id number]
[2020-06-13] MEDS: DULoxetine 60 MG CAP PO SCH (08:25)
[2020-06-13] MEDS: Pantoprazole 40 MG VIAL IVP SCH (08:26)
[2020-06-13] MEDS: Rifaximin 550 MG TAB PO SCH ×2 (09:34→21:38)
[2020-06-13] MEDS: Spironolactone 100 MG TAB PO SCH (09:35)
[2020-06-13] MEDS ORDERED: Hydrocortisone Acetate 25 MG Suppository PR SCH (11:45)
--- NOTE | 2020-06-13 12:34 | PRG ---
DATE OF SERVICE: 06/13/2020 SUBJECTIVE: Mr. Mccall is feeling well. His is in the bedside. Just now when he had a bowel movement today, he had a scant amount of bright red blood per rectum, this is painless. He had normal stool with this. MEDICATIONS: 1. Tylenol. 2. Tums. 3. Lasix 40 mg IV q.12. 4. Lactulose. 5. Levofloxacin. 6. Protonix. 7. Rifaximin. 8. Aldactone 100. OBJECTIVE: VITAL SIGNS: Temperature 97, pulse 81, blood pressure 133/90. GENERAL: He has temporal wasting. He has a scant amount of ascites, protuberant abdomen. EXTREMITIES: Trace edema in his legs. RECTAL: Reveals no blood in the vault. Internal hemorrhoids. No stool in the vault. LABORATORY DATA: White count today 4, hemoglobin 10.0, it was 9.3 yesterday and 10.2 on the . Platelet count 73,000. Sodium 137, BUN and creatinine 15 and 0.7. Bilirubin 1.5, AST and ALT are 104 and 65, alkaline phosphatase is 111. Tap showed a white count of the fluid of 434, red blood cells 21 to 29, segs, 19%. No culture. ASSESSMENT: 1. Cirrhosis, alcohol, hepatitis C. Care at the [place]. He has seen a Liver physician in [place] and he sees Dr. Kelley locally. 2. Admitted for edema and redness on his legs. The edema seems stable. The redness on his legs is probably vasculitis secondary to his hepatitis C. 3. Hepatitis C. He has medications for this now. 4. Rectal bleeding. Seems he has had a little bit of hemorrhoidal bleeding. He has no blood per rectum. Presently, his hemoglobin is stable. 5. History of varices, he has been banded twice. There was no signs of variceal hemorrhage at this admission. He will probably need another outpatient variceal banding soon, which he follow up with Dr. Kelley for. 6. Prior history of ulcers in the duodenum and portal hypertensive gastropathy. He has been on PPI for this. 7. He has had SBP in the past. He also had bacteremia related to Campylobacter in the past with his fluid white count of almost 500, even though the PMN , I would go ahead and probably treat him empirically for 5 days with Levaquin. 8. With regard to his diuretics, would not change the dose. He can follow up Dr. Kelley locally, if they are going to make adjustments they can do that in the outpatient setting and monitor his renal function closely. I am not sure that it would be a good idea to increase his diuretics now, I thought it is time for a followup appointment and time to check labs. He could be at risk of developing prerenal azotemia and he does not have any respiratory embarrassment, can get around just fine. PLAN: 1. We will give him some suppositories for his rectal bleeding. 2. I would recommend he go home with an antibiotic for 3 days. Levofloxacin will be fine, a probiotic with this should be good. He needs to his home diuretics. Start his Epclusa, when he goes home and follow up Dr. Kelley in 1 to 2 weeks. I discussed this with hospitalist physician, Dr. Lou. We will sign off at this time. Please call if I can be of further assistance in his care. Job ID: [id number]
--- NOTE | 2020-06-13 13:53 | PDOC.HOSPP ---
- Subjective Encounter Date: 06/13/20 Encounter Time: 11:00 Subjective: Patient seen and examined for abdominal pain along with bilateral lower extremity erythema. Abdominal pain slowly improving. Had bowel movement this morning. Denies any nausea or vomiting. No fever or chills reported. - Objective Vital Signs & Weight: Vital Signs (12 hours) Temp Pulse Resp BP BP Pulse Ox 06/13/20 11:43 97.7 F 92 18 131/83 97 06/13/20 08:25 96 06/13/20 07:03 97.6 F 91 18 133/90 96 06/13/20 03:34 97.8 F 91 19 128/87 95 Weight Weight 203 lb 7.787 oz I&O: 06/12/20 06/13/20 06/14/20 06:59 06:59 06:59 Intake Total 2226 Output Total 5000 Balance -2774 Result Diagrams: 06/13/20 05:03 06/13/20 05:03 Additional Labs: Accuchecks 06/13/20 06/13/20 06/12/20 11:42 06:10 20:18 POC Glucose 122 H 89 94 Abnormal Lab Results - Last 48 hrs 06/11/20 15:52: Creatinine 0.66 L, Total Bilirubin 1.5 H, AST 106 H, ALT 70 H, Alkaline Phosphatase 120 H, Albumin 3.2 L, Albumin/Globulin Ratio 1.0 L 06/11/20 15:52: PT 15.9 H 06/11/20 15:52: RBC 3.78 L, Hgb 10.2 L, Hct 31.7 L, RDW 16.5 H, Plt Count 82 L, MPV 10.5 H, Monocytes % 12.6 H, Monocytes # 0.7 H 06/11/20 15:52: ESR Westergren 21 H 06/12/20 04:23: Calcium 7.7 L, Total Bilirubin 1.3 H, AST 94 H, ALT 60 H, Serum Total Protein 5.7 L, Albumin 2.8 L, Albumin/Globulin Ratio 1.0 L 06/12/20 04:23: WBC 3.3 L, RBC 3.51 L, Hgb 9.3 L, Hct 29.4 L, MCH 26.5 L, MCHC 31.6 L, RDW 16.5 H, Plt Count 66 L, MPV 11.5 H, Monocytes % 11.8 H, Lymphocytes # 0.8 L 06/12/20 14:00: Fluid Clarity Cloudy/Turbid H 06/13/20 05:03: Total Bilirubin 1.5 H, AST 104 H, ALT 65 H, Alkaline Phosphatase 111 H, Albumin 2.9 L, Albumin/Globulin Ratio 0.9 L 06/13/20 05:03: WBC 4.0 L, RBC 3.80 L, Hgb 10.0 L, Hct 31.7 L, MCH 26.5 L, MCHC 31.7 L, RDW 16.6 H, Plt Count 73 L, MPV 11.1 H, Lymphocytes % 20.3 L, Monocytes % 10.9 H, Lymphocytes # 0.8 L Radiology Reviewed by me: Yes (CT abdomen reviewed) Hospitalist ROS - Review of Systems Respiratory: denies: cough, dry, shortness of breath, hemoptysis, SOB with excertion, pleuritic pain, sputum, wheezing, other Cardiovascular: denies: chest pain, palpitations, orthopnea, paroxysmal noc. dyspnea, edema, light headedness, other - Medication Medications: Active Medications Generic Name Dose Route Start Last Admin Trade Name Freq PRN Reason Stop Dose Admin Acetaminophen 650 mg 06/11/20 17:45 06/11/20 21:39 Acetaminophen 325 Mg Tab PO 650 mg Q6H PRN Administration Headache/Fever/Mild Pain (1-3) Duloxetine HCl 60 mg 06/12/20 09:00 06/13/20 08:25 Duloxetine 60 Mg Cap PO 60 mg DAILY GADIEL Administration Furosemide 40 mg 06/12/20 06:00 06/13/20 13:14 Furosemide 40 Mg/4 Ml Vial SLOW IVP 40 mg 0600,1400 GADIEL Administration Levofloxacin 500 mg/ Device 100 mls @ 100 mls/hr 06/13/20 11:00 06/13/20 11:17 IVPB 100 mls Q24HR GADIEL Administration Lactulose 20 gm 06/11/20 21:00 06/13/20 12:25 Lactulose 20 Gm/30 Ml Udcup PO 20 gm QID GADIEL Administration Morphine Sulfate 4 mg 06/11/20 22:19 06/13/20 13:48 Morphine 4 Mg/Ml Vial SLOW IVP 4 mg Q3H PRN Administration Moderate to Severe Pain (6-10) Pantoprazole Sodium 40 mg 06/12/20 09:00 06/13/20 08:26 Pantoprazole 40 Mg Vial IVP 40 mg DAILY GADIEL Administration Rifaximin 550 mg 06/11/20 21:00 06/13/20 09:34 Rifaximin 550 Mg Tab PO 550 mg BID GADIEL Administration Spironolactone 100 mg 06/12/20 09:00 06/13/20 09:35 Spironolactone 100 Mg Tab PO 100 mg DAILY GADIEL Administration - Exam General Appearance: awake alert Heart: RRR, no gallops Respiratory: no wheezes, no ronchi Gastrointestinal: soft, non-distended, no guarding, no rigidity, tender to palpation (Mild generalized) Extremities: no cyanosis Neurological: no new deficit Psychiatric: normal affect, A&O x 3 Hosp A/P - Plan DVT proph w/SCDs (No heparin due to thrombocytopenia) Abdominal pain/swellingprobably due to symptomatic ascites with suspected SBPPOA Bilateral lower extremity erythema probably due to 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 Patient probably has spontaneous bacterial peritonitis. Will treat with Levaquin for 3 to 4 days. Will change Lasix to p.o. Change PPIs to p.o. Add probiotics per GI. We will continue spironolactone. Cryoglobulin level pending. Will probably DC in a.m. if stable. Plan discussed with the patient and the family at the bedside. 06/12 Paracentesis today. Await GI input. Will consult infectious disease for questionable bilateral lower extremity cellulitis. Will continue Lasix along with spironolactone. A.m. labs. Continue other medications as above.
[2020-06-13] MEDS: Furosemide 20 MG TAB PO SCH (14:06)
--- NOTE | 2020-06-13 16:29 | PRG ---
DATE OF SERVICE: 06/13/2020 SUBJECTIVE: Mr. Mccall had a paracentesis, was mostly diagnostic and showed some white cells above the threshold, so he is on levofloxacin. His legs are better, is not as swollen or tender. No respiratory symptoms. OBJECTIVE: VITAL SIGNS: He is afebrile. Saturating 95% on room air. GENERAL: Appears better than when I first saw him. LUNGS: Faint basilar crackles. ABDOMEN: Still distended and moderately tender. EXTREMITIES: Legs are less swollen. LABORATORY DATA: Ascitic fluid with 434 wbc's with 31 lymphocytes, 19% neutrophils. His creatinine is 0.71. Body fluid culture, no organism seen. 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 He also has ascitic fluid findings that would be consistent with this spontaneous bacterial peritonitis and he is on treatment for it, so he is going to need treatment for hepatitis C to be completed. I do not think he is going to need immunosuppressive medication to manage this likely consequence of cryoglobulinemia. Job ID: [id number]
[2020-06-13] MEDS: Hydrocortisone Acetate 25 MG Suppository PR SCH (21:42)
[2020-06-14] MEDS: Morphine 4 MG/ML VIAL SLOW IVP PRN ×3 (00:09→11:40)
[2020-06-14] MEDS ORDERED: Saccharomyces boulardii 250 MG CAP PO SCH (09:00)
[2020-06-14] MEDS: DULoxetine 60 MG CAP PO SCH (09:56)
[2020-06-14] MEDS: Rifaximin 550 MG TAB PO SCH (09:56)
[2020-06-14] MEDS: Spironolactone 100 MG TAB PO SCH (09:56)
[2020-06-14] MEDS: Furosemide 20 MG TAB PO SCH (09:56)
[2020-06-14] MEDS: Hydrocortisone Acetate 25 MG Suppository PR SCH (09:57)
[2020-06-14 11:50] VITALS: BP 135/82; TEMP 97.5
--- NOTE | 2020-06-14 18:49 | PDOC.DS.DS ---
Provider - Provider Date of Admission: 06/11/20 17:22 Date of Discharge: 06/14/20 Admitting Provider: Paula Price MD Consultations: Gastroentrology Primary Care Physician: Malik Kelley MD Course - Hospital Course Hospital Course: Patient is a 54-year-old male with cirrhosis and portal hypertension presented to the hospital with abdominal discomfort along with bilateral lower extremity erythema and swelling. CT scan of the abdomen showed findings consistent with ascites along with cirrhosis and splenomegaly. There were also multifocal varices consistent with portal hypertension. Right upper quadrant ultrasound showed moderate ascites with cirrhosis of the liver. Patient was evaluated by gastroenterology. A diagnostic paracentesis was performed that showed fluid WBC of 434 with 19% neutrophils. The fluid was cloudy/turbid. Gastroenterology recommended short course of Levaquin for possible peritonitis. He was started on IV Levaquin that has been transitioned to oral. He also had mild rectal bleeding due to hemorrhoids and was started on hydrocortisone suppositories with good improvement. Patient has been cleared by gastroenterology for discharge. Patient was evaluated by infectious disease for bilateral lower extremity swelling/erythema with concern for cellulitis. Per infectious disease patient probably has leukocytoclastic vasculitis associated with cryoglobulinemia. IV antibiotics which were started on admission for cellulitis were discontinued. Cryoglobulin level has been sent and pending at this time. Primary care physician advised to follow-up on the cryoglobulin level. 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 unlikely by infectious disease Chronic hepatitis C History of hemochromatosis GERD History of PTSD Pancytopenia/Coagulopathy/abnormal LFTs due to cirrhosis History of esophageal varices with recent EGD History of cannabis abuse History of SBP in 04/18 Resuscitation Status: 06/11/20 17:45 Resuscitation Status Routine Co-Sign Provider: Resuscitation Status: FULL: Full Resuscitation Discussed with: patient Additional comments: Narcisa jacques at [phone] - Labs Lab Results: 06/13/20 05:03 06/13/20 05:03 Abnormal Lab Results - Last 48 hrs 06/13/20 05:03: Total Bilirubin 1.5 H, AST 104 H, ALT 65 H, Alkaline Phosphatase 111 H, Albumin 2.9 L, Albumin/Globulin Ratio 0.9 L 06/13/20 05:03: WBC 4.0 L, RBC 3.80 L, Hgb 10.0 L, Hct 31.7 L, MCH 26.5 L, MCHC 31.7 L, RDW 16.6 H, Plt Count 73 L, MPV 11.1 H, Lymphocytes % 20.3 L, Monocytes % 10.9 H, Lymphocytes # 0.8 L - Physical Exam Vitals: Vital Signs (12 hours) Temp Pulse Resp BP Pulse Ox 06/14/20 11:50 97.5 F L 82 14 135/82 98 06/14/20 08:31 97.8 F 87 14 147/94 H 96 Weight Weight 202 lb 13.204 oz Physical Exam: The patient was seen and examined on the day of discharge. Plan - Discharge Medications Prescriptions: Hydrocortisone Acetate [Anusol-HC] 25 mg AR BID #14 supp Saccharomyces boulardii [Florastor] 250 mg PO DAILY #7 cap Levofloxacin [Levaquin] 500 mg PO DAILY #2 tab Home Medications: Medication Instructions Recorded Confirmed Type DULoxetine [Cymbalta] 60 mg PO DAILY 03/16/20 06/12/20 History Lactulose [Constulose] 30 ml PO QID 03/16/20 06/12/20 History Spironolactone [Aldactone] 100 mg PO DAILY 03/16/20 06/12/20 History Magnesium 2 tab PO DAILY 05/01/20 06/12/20 History Furosemide [Lasix] 20 mg PO BID 06/12/20 06/12/20 History Omeprazole 40 mg PO DAILY 06/12/20 06/12/20 History Rifaximin [Xifaxan] 1 tab PO BID 06/12/20 06/12/20 History Sofosbuvir/Velpatasvir [Epclusa 1 tab PO DAILY 06/12/20 06/12/20 History 400 mg-100 mg Tablet] Turmeric/Turmeric Root Extract 1 each PO DAILY 06/12/20 06/12/20 History [Turmeric 500 mg Capsule] Hydrocortisone Acetate [Anusol-HC] 25 mg AR BID #14 supp 06/14/20 Rx Levofloxacin [Levaquin] 500 mg PO DAILY #2 tab 06/14/20 Rx Saccharomyces boulardii [Florastor] 250 mg PO DAILY #7 cap 06/14/20 Rx Allergies: aspirin Adverse Reaction (Verified 06/12/20 01:55) causes stomach to burn - Discharge Instructions Discharge Instructions:: Follow-up on cryoglobulin levels - Follow up Plan Referrals: Malik Kelley MD [Primary Care Provider] - 7 Days (call for follow up appointment ) Disposition: HOME Quality - Care Measures CORE MEASURES:: N/A
== END 2020-06-14 13:25 | disposition home or self-care (01) | DRG 813 ==
LOC: ERS 13:31 → 2NO 17:22 → SURG A 06-12 19:39
PROVIDERS: ADMIT Internal Medicine; ATTEND Internal Medicine
PROC: 0W9G3ZX Drainage of Peritoneal Cavity, Percutaneous Approach, Diagnostic (ICD-10-PCS; principal; 2020-06-12)
DX: D69.0 Allergic purpura (principal); K65.2 Spontaneous bacterial peritonitis; Z20.822 Contact with and (suspected) exposure to COVID-19; Z23 Encounter for immunization; D61.818 Other pancytopenia; R18.8 Other ascites; I85.10 Secondary esophageal varices without bleeding; K76.6 Portal hypertension; E83.110 Hereditary hemochromatosis; B18.2 Chronic viral hepatitis C; K21.9 Gastro-esophageal reflux disease without esophagitis; F43.10 Post-traumatic stress disorder, unspecified; D68.4 Acquired coagulation factor deficiency; F12.10 Cannabis abuse, uncomplicated; F41.9 Anxiety disorder, unspecified; K72.90 Hepatic failure, unspecified without coma; K64.9 Unspecified hemorrhoids; K31.89 Other diseases of stomach and duodenum; Z90.49 Acquired absence of other specified parts of digestive tract; Z79.899 Other long term (current) drug therapy; Z88.8 Allergy status to other drugs, medicaments and biological substances; Z87.11 Personal history of peptic ulcer disease; Z87.891 Personal history of nicotine dependence
CPT/HCPCS: 36415; 36416; 49083; 71045; 74177; 76705; 80053; 80202; 81003; 82550; 82595; 83605; 83735; 83880; 85025; 85060; 85610; 85652; 85730; 87635; 89051; 90714; 93005; 93970; 96365; 96367; 96375; C9113; J0692; J1940; J1956; J2270; J2543; J3370; J3490; J7050; Q9967; U0003; U0005

== ENCOUNTER 2021-06-27 21:58 | Inpatient (IN) | payer OTHER ==
[2021-06-27] MEDS ORDERED: Pantoprazole 40 MG VIAL ONE ×2 (22:33→22:34)
[2021-06-27] MEDS ORDERED: Octreotide Acetate 50 MCG/ML AMP ONE (22:33)
[2021-06-27] MEDS ORDERED: cefTRIAXone\\ROCEPHIN 1 GM VIAL ONE (22:33)
[2021-06-27 22:42] LABS: Hemoglobin 12.6 g/dL (14.0-18.0); Mean Corpuscular Hemoglobin 28.7 pg (27.0-31.0); Mean Corpuscular Volume 86.8 fL (78.0-98.0); RBC Distribution Width 16.2 % (11.5-14.5); White Blood Cell (WBC) Count 9.6 thou/uL (4.8-10.8)
[2021-06-27] MEDS ORDERED: Octreotide Acetate 1,250 MCG in Sodium Chloride 0.9% 250 ML 250 ML IVPB SCH (22:45)
[2021-06-27 22:50] LABS: INR-International Normal Ratio 1.3; PTT 31.9 sec (22.9-36.1); Prothrombin Time 16.1 sec (12.0-14.7)
[2021-06-27 23:00] LABS: #Basophils 0.1 thou/uL (0.0-0.2); #Eosinphils 0.1 thou/uL (0.0-0.7); #Monocytes 1.3 thou/uL (0.11-0.59); #Neutrophils 7.2 thou/uL (1.40-6.50); %Basophils 0.6 % (0.0-1.0); %Eosinophils 0.5 % (0.0-10.0); %Lymphocytes 10.5 % (21.0-51.0); %Monocytes 13.6 % (0.0-10.0); %Neutrophils 74.7 % (42.0-75.0); Mean Platelet Volume 10.5 fL (7.4-10.4); Platelet Count 60 thou/uL (130-400); Platelet Morphology Comment Appears Decreased
[2021-06-27 23:04] LABS: ALT (SGPT) 26 U/L (8-55); AST (SGOT) 38 U/L (5-34); Albumin 3.5 g/dL (3.5-5.0); Alkaline Phosphatase 94 U/L (40-110); Anion Gap 13 mmol/L (10-20); BUN (Urea Nitrogen) 21 mg/dL (8.4-25.7); Bilirubin, Total 0.8 mg/dL (0.2-1.2); Calc. Creatinine Clearance 0 mL/min (70-130); Calcium 8.6 mg/dL (7.8-10.44); Carbon Dioxide 21 mmol/L (22-29); Chloride 105 mmol/L (98-107); Globulin 2.7 g/dL (2.4-3.5); Glucose 141 mg/dL (70-105); Potassium 4.1 mmol/L (3.5-5.1); Protein, Total 6.2 g/dL (6.0-8.3); Sodium 135 mmol/L (136-145)
[2021-06-28] MEDS ORDERED: Ondansetron ODT 4 MG TAB PO PRN (01:43)
[2021-06-28] MEDS ORDERED: Acetaminophen 650 MG Suppository PR PRN (01:43)
[2021-06-28] MEDS ORDERED: Ondansetron PF 4 MG/2 ML Vial IVP PRN (01:43)
[2021-06-28] MEDS ORDERED: Acetaminophen 325 MG TAB PO PRN (01:43)
[2021-06-28] MEDS: Sodium Chloride 0.9% 1,000 ML IV SCH ×2 (03:19→15:08)
[2021-06-28 04:24] LABS: SARS-CoV-2 NAA Rapid Test DETECTED (NotDetected)
[2021-06-28 06:14] LABS: Hemoglobin 11.4 g/dL (14.0-18.0); Mean Corpuscular HGB CONC 32.4 g/dL (32.0-36.0); Mean Corpuscular Hemoglobin 28.3 pg (27.0-31.0); Mean Corpuscular Volume 87.4 fL (78.0-98.0); Mean Platelet Volume 11.2 fL (7.4-10.4); Platelet Count 46 thou/uL (130-400); RBC Distribution Width 16.1 % (11.5-14.5); Red Blood Cell (RBC) Count 4.04 mill/uL (4.70-6.10); White Blood Cell (WBC) Count 7.5 thou/uL (4.8-10.8)
[2021-06-28 06:20] LABS: Anion Gap 12 mmol/L (10-20); BUN (Urea Nitrogen) 24 mg/dL (8.4-25.7); Calc. Creatinine Clearance 127 mL/min (70-130); Calcium 8.3 mg/dL (7.8-10.44); Carbon Dioxide 22 mmol/L (22-29); Chloride 107 mmol/L (98-107); Glucose 112 mg/dL (70-105); Potassium 4.8 mmol/L (3.5-5.1); Sodium 136 mmol/L (136-145)
[2021-06-28 06:30] LABS: Band 11 % (5-11); Lymphocytes 13 % (21-51); MDiff Complete? YES; Monocytes 17 % (0-10); Neutrophil 59 % (42-75); Platelet Morphology Comment Appears Decreased
[2021-06-28] MEDS: Cholecalciferol (Vitamin D3) 400 UNITS TAB PO SCH (08:16)
[2021-06-28] MEDS: Zinc Sulfate 220 MG CAP PO SCH (08:16)
[2021-06-28] MEDS: Ascorbic Acid 500 mg Chewable Tablet PO SCH (08:16)
[2021-06-28] MEDS: Pantoprazole 40 MG VIAL IVP SCH ×2 (10:15→19:54)
[2021-06-28] MEDS ORDERED: Rocuronium Bromide 10 MG/ML (10ML VIAL) ONE (12:34)
[2021-06-28] MEDS ORDERED: PROPOFOL 200 MG/20 ML VIAL ONE (12:34)
[2021-06-28] MEDS ORDERED: Lidocaine 1% PF 5 ML VIAL ONE (12:34)
[2021-06-28] MEDS ORDERED: PHENYLEPHRINE-NS 100 MCG/ML 10 ML SYRINGE ONE (12:34)
[2021-06-28] MEDS ORDERED: Succinylcholine 200 MG/10 ml SYRINGE FS ONE (12:34)
[2021-06-28] MEDS ORDERED: Midazolam HCl 2 mg/2 ml Vial ONE (13:18)
[2021-06-28] MEDS ORDERED: Fentanyl 100 MCG/2 ML VIAL ONE (13:20)
[2021-06-28] MEDS ORDERED: Propofol 1,000 MG/100 ML VIAL IV ONE (13:54)
[2021-06-28] MEDS ORDERED: Ventilator Sedation Protocol 1 EACH FS SCH (14:45)
[2021-06-28] MEDS ORDERED: Propofol BOLUS 1,000 MG/100 ML VIAL IV PRN (15:00)
[2021-06-28] MEDS ORDERED: Morphine 2 MG/ML VIAL SLOW IVP PRN (15:00)
[2021-06-28] MEDS ORDERED: DISCONTINUE PREVIOUS NARCOTIC PAIN MEDICATIONS AND BENZODIAZEPINES FS SCH (15:00)
[2021-06-28] MEDS ORDERED: Lorazepam 2 MG/ML VIAL SLOW IVP PRN (15:00)
[2021-06-28] MEDS ORDERED: Morphine 4 MG/ML VIAL SLOW IVP PRN (15:00)
[2021-06-28] MEDS ORDERED: Fentanyl BOLUS 250 ML IVPB PRN (15:00)
[2021-06-28] MEDS: fentaNYL Citrate/PF 2,000 MCG in Sodium Chloride 0.9% 60 ML IV SCH (15:56)
[2021-06-28] MEDS ORDERED: Piperacillin/Tazobactam 3.375 GM in Sodium Chloride 0.9% 100 ML IVPB SCH ×2 (16:15→16:30)
[2021-06-28] MEDS: Propofol 1,000 MG/100 ML VIAL IV PRN ×2 (16:47→20:51)
[2021-06-28 17:33] LABS: Actual Bicarbonate (HCO3a) 22.9 mEq/L (22-28); CO2 Tension 39.3 mmHg (35.0-45.0); Calcium, Ionized (arterial) 1.04 mmol/L (1.12-1.30); Carboxyhemoglobin (COHb) 0.1 gm% (0.0-3.0); Hemoglobin (Hb) 9.5 g/dL (14.0-18.0); O2 Tension (PaO2), arterial 119.4 mmHg (80.0-100.0); Potassium - ABG Lab 4.24 mmol/L (3.70-5.30); Puncture Site RRA; pH, Arterial 7.38 (7.35-7.45)
[2021-06-28 17:34] LABS: ALV-art Gradient 116.675 mmHg (0-20)
[2021-06-28] MEDS: Octreotide Acetate 1,250 MCG in Sodium Chloride 0.9% 250 ML 250 ML IVPB SCH (19:47)
[2021-06-28] MEDS: Piperacillin/Tazobactam 3.375 GM in Sodium Chloride 0.9% 100 ML IVPB SCH (20:26)
[2021-06-28] MEDS ORDERED: cefTRIAXone\\ROCEPHIN 1 GM in Sodium Chloride 0.9% 100 ML IVPB SCH (21:00)
[2021-06-28 23:46] LABS: Hemoglobin 9.7 g/dL (14.0-18.0); Mean Corpuscular HGB CONC 33.1 g/dL (32.0-36.0); Mean Corpuscular Hemoglobin 29.2 pg (27.0-31.0); Mean Corpuscular Volume 88.3 fL (78.0-98.0); Mean Platelet Volume 10.6 fL (7.4-10.4); Platelet Count 44 thou/uL (130-400); RBC Distribution Width 16.2 % (11.5-14.5); Red Blood Cell (RBC) Count 3.32 mill/uL (4.70-6.10); White Blood Cell (WBC) Count 3.5 thou/uL (4.8-10.8)
[2021-06-29] MEDS: Propofol 1,000 MG/100 ML VIAL IV PRN ×4 (01:48→13:32)
[2021-06-29] MEDS: Piperacillin/Tazobactam 3.375 GM in Sodium Chloride 0.9% 100 ML IVPB SCH ×3 (05:10→20:00)
[2021-06-29 07:11] LABS: Hemoglobin 9.5 g/dL (14.0-18.0); Mean Corpuscular HGB CONC 32.5 g/dL (32.0-36.0); Mean Corpuscular Hemoglobin 28.8 pg (27.0-31.0); Mean Corpuscular Volume 88.5 fL (78.0-98.0); Mean Platelet Volume 10.1 fL (7.4-10.4); Platelet Count 45 thou/uL (130-400); RBC Distribution Width 16.3 % (11.5-14.5); Red Blood Cell (RBC) Count 3.29 mill/uL (4.70-6.10); White Blood Cell (WBC) Count 3.1 thou/uL (4.8-10.8)
[2021-06-29] MEDS: Sodium Chloride 0.9% 1,000 ML IV SCH ×2 (07:12→13:00)
[2021-06-29] MEDS: fentaNYL Citrate/PF 2,000 MCG in Sodium Chloride 0.9% 60 ML IV SCH (07:13)
[2021-06-29 07:31] LABS: Actual Bicarbonate (HCO3a) 23.7 mEq/L (22-28); Base Excess (BEa) -1.4 mEq/L (-2.0 to +3.0); CO2 Tension 41.1 mmHg (35.0-45.0); Calcium, Ionized (arterial) 1.07 mmol/L (1.12-1.30); Hemoglobin (Hb) 9.9 g/dL (14.0-18.0); O2 Tension (PaO2), arterial 95.3 mmHg (80.0-100.0); Potassium - ABG Lab 4.03 mmol/L (3.70-5.30); pH, Arterial 7.38 (7.35-7.45)
[2021-06-29 07:35] LABS: Anion Gap 11 mmol/L (10-20); BUN (Urea Nitrogen) 20 mg/dL (8.4-25.7); Calc. Creatinine Clearance 126 mL/min (70-130); Carbon Dioxide 22 mmol/L (22-29); Chloride 113 mmol/L (98-107); Potassium 4.2 mmol/L (3.5-5.1); Sodium 142 mmol/L (136-145)
[2021-06-29 07:35] LABS: ALV-art Gradient 138.525 mmHg (0-20); Puncture Site RRA
[2021-06-29 07:36] LABS: ALT (SGPT) 25 U/L (8-55); AST (SGOT) 37 U/L (5-34); Albumin 2.9 g/dL (3.5-5.0); Alkaline Phosphatase 70 U/L (40-110); Bilirubin, Total 0.6 mg/dL (0.2-1.2); Calcium 7.6 mg/dL (7.8-10.44); Globulin 2.3 g/dL (2.4-3.5); Glucose 95 mg/dL (70-105); Phosphorus 3.2 mg/dL (2.3-4.7); Protein, Total 5.2 g/dL (6.0-8.3)
[2021-06-29] MEDS: Octreotide Acetate 1,250 MCG in Sodium Chloride 0.9% 250 ML 250 ML IVPB SCH ×2 (08:35→21:36)
[2021-06-29] MEDS: Pantoprazole 40 MG VIAL IVP SCH ×2 (08:56→20:00)
[2021-06-29] MEDS: Cholecalciferol (Vitamin D3) 400 UNITS TAB PO SCH (09:55)
[2021-06-29] MEDS: Zinc Sulfate 220 MG CAP PO SCH (09:55)
[2021-06-29] MEDS: Ascorbic Acid 500 mg Chewable Tablet PO SCH (09:56)
[2021-06-29 17:35] LABS: Hemoglobin 9.2 g/dL (14.0-18.0); Mean Platelet Volume 9.5 fL (7.4-10.4); Platelet Count 45 thou/uL (130-400); RBC Distribution Width 16.3 % (11.5-14.5); Red Blood Cell (RBC) Count 3.17 mill/uL (4.70-6.10); White Blood Cell (WBC) Count 3.1 thou/uL (4.8-10.8)
[2021-06-29 23:11] LABS: Hemoglobin 9.3 g/dL (14.0-18.0); Mean Corpuscular HGB CONC 32.8 g/dL (32.0-36.0); Mean Corpuscular Hemoglobin 29.2 pg (27.0-31.0); Mean Corpuscular Volume 89.2 fL (78.0-98.0); Platelet Count 40 thou/uL (130-400); RBC Distribution Width 16.1 % (11.5-14.5); White Blood Cell (WBC) Count 3.8 thou/uL (4.8-10.8)
[2021-06-30] MEDS: Piperacillin/Tazobactam 3.375 GM in Sodium Chloride 0.9% 100 ML IVPB SCH ×3 (04:10→20:04)
[2021-06-30 04:23] LABS: ALT (SGPT) 28 U/L (8-55); AST (SGOT) 43 U/L (5-34); Albumin 2.8 g/dL (3.5-5.0); Alkaline Phosphatase 67 U/L (40-110); Anion Gap 11 mmol/L (10-20); BUN (Urea Nitrogen) 18 mg/dL (8.4-25.7); Bilirubin, Total 0.8 mg/dL (0.2-1.2); Calc. Creatinine Clearance 137 mL/min (70-130); Calcium 7.2 mg/dL (7.8-10.44); Carbon Dioxide 22 mmol/L (22-29); Chloride 111 mmol/L (98-107); Globulin 2.2 g/dL (2.4-3.5); Glucose 86 mg/dL (70-105); Magnesium 1.6 mg/dL (1.6-2.6); Phosphorus 2.6 mg/dL (2.3-4.7); Potassium 3.6 mmol/L (3.5-5.1); Sodium 140 mmol/L (136-145)
[2021-06-30 04:41] LABS: #Eosinphils 0.1 thou/uL (0.0-0.7); #Lymphocytes 0.7 thou/uL (1.20-3.40); #Monocytes 0.4 thou/uL (0.11-0.59); #Neutrophils 2.1 thou/uL (1.40-6.50); %Basophils 1.2 % (0.0-1.0); %Eosinophils 1.6 % (0.0-10.0); %Lymphocytes 20.7 % (21.0-51.0); %Neutrophils 63.5 % (42.0-75.0); Hemoglobin 9.3 g/dL (14.0-18.0); Mean Corpuscular Hemoglobin 29.1 pg (27.0-31.0); Mean Corpuscular Volume 88.1 fL (78.0-98.0); Mean Platelet Volume 10.2 fL (7.4-10.4); Platelet Count 38 thou/uL (130-400); Platelet Morphology Comment Appears Decreased; Red Blood Cell (RBC) Count 3.19 mill/uL (4.70-6.10); White Blood Cell (WBC) Count 3.3 thou/uL (4.8-10.8)
[2021-06-30] MEDS: Ascorbic Acid 500 mg Chewable Tablet PO SCH (09:16)
[2021-06-30] MEDS: Pantoprazole 40 MG VIAL IVP SCH ×2 (09:16→20:03)
[2021-06-30] MEDS: Cholecalciferol (Vitamin D3) 400 UNITS TAB PO SCH (09:16)
[2021-06-30] MEDS: Zinc Sulfate 220 MG CAP PO SCH (09:16)
[2021-06-30] MEDS: Sodium Chloride 0.9% 1,000 ML IV SCH ×3 (09:18→23:02)
[2021-06-30] MEDS: Octreotide Acetate 1,250 MCG in Sodium Chloride 0.9% 250 ML 250 ML IVPB SCH (11:17)
[2021-07-01] MEDS: Piperacillin/Tazobactam 3.375 GM in Sodium Chloride 0.9% 100 ML IVPB SCH ×3 (04:48→20:06)
[2021-07-01] MEDS: Octreotide Acetate 1,250 MCG in Sodium Chloride 0.9% 250 ML 250 ML IVPB SCH (04:49)
[2021-07-01] MEDS: Pantoprazole 40 MG VIAL IVP SCH ×2 (09:12→20:06)
[2021-07-01] MEDS: Cholecalciferol (Vitamin D3) 400 UNITS TAB PO SCH (09:12)
[2021-07-01] MEDS: Zinc Sulfate 220 MG CAP PO SCH (09:13)
[2021-07-01] MEDS: Ascorbic Acid 500 mg Chewable Tablet PO SCH (09:13)
[2021-07-01 13:35] VITALS: BMI 29.9
[2021-07-01] MEDS: Rifaximin 550 MG TAB PO SCH (20:06)
[2021-07-02] MEDS: Piperacillin/Tazobactam 3.375 GM in Sodium Chloride 0.9% 100 ML IVPB SCH ×3 (05:33→22:26)
[2021-07-02 06:29] LABS: Anion Gap 11 mmol/L (10-20); BUN (Urea Nitrogen) 6 mg/dL (8.4-25.7); Calc. Creatinine Clearance 158 mL/min (70-130); Calcium 7.7 mg/dL (7.8-10.44); Carbon Dioxide 23 mmol/L (22-29); Chloride 109 mmol/L (98-107); Glucose 101 mg/dL (70-105); Potassium 3.1 mmol/L (3.5-5.1); Sodium 140 mmol/L (136-145)
[2021-07-02 06:46] LABS: Hemoglobin 9.6 g/dL (14.0-18.0); Mean Corpuscular HGB CONC 35.4 g/dL (32.0-36.0); Mean Corpuscular Hemoglobin 30.9 pg (27.0-31.0); Mean Corpuscular Volume 87.3 fL (78.0-98.0); Mean Platelet Volume 9.6 fL (7.4-10.4); Platelet Count 42 thou/uL (130-400); White Blood Cell (WBC) Count 1.9 thou/uL (4.8-10.8)
[2021-07-02] MEDS ORDERED: Electrolyte Replacement Protocol 1 EACH FS SCH (07:15)
[2021-07-02 07:47] LABS: Band 3 % (5-11); Eosinophils 2 % (0-10); Lymphocytes 33 % (21-51); Monocytes 4 % (0-10); Neutrophil 49 % (42-75); Reactive Lymphocytes 9 % (0-10)
[2021-07-02 07:48] LABS: MDiff Complete? YES; Platelet Morphology Comment Appears Decreased; Polychromasia SLIGHT = 2-3 cells (100X) (0-2/hpf)
[2021-07-02] MEDS ORDERED: Magnesium 2 GM/50 ML 2 GM in Premix Bag 1 BAG IVPB SCH (08:00)
[2021-07-02] MEDS: Octreotide Acetate 1,250 MCG in Sodium Chloride 0.9% 250 ML 250 ML IVPB SCH (08:31)
[2021-07-02] MEDS: Furosemide 40 MG TAB PO SCH (08:31)
[2021-07-02] MEDS: Rifaximin 550 MG TAB PO SCH ×2 (08:32→22:20)
[2021-07-02] MEDS: Spironolactone 100 MG TAB PO SCH (08:32)
[2021-07-02] MEDS: Cholecalciferol (Vitamin D3) 400 UNITS TAB PO SCH (08:32)
[2021-07-02] MEDS: Ascorbic Acid 500 mg Chewable Tablet PO SCH (08:32)
[2021-07-02] MEDS: Zinc Sulfate 220 MG CAP PO SCH (08:32)
[2021-07-02] MEDS: Nadolol 40 MG TAB PO SCH (08:33)
[2021-07-02] MEDS: Pantoprazole 40 MG VIAL IVP SCH ×2 (08:33→22:23)
[2021-07-02] MEDS ORDERED: Potassium Chloride 20 MEQ TAB PO SCH (09:00)
[2021-07-02] MEDS: Calcium Carbonate 500 MG ChewTAB PO PRN ×2 (09:06→13:52)
[2021-07-02] MEDS ORDERED: Octreotide Acetate 1,250 MCG in Sodium Chloride 0.9% 250 ML 250 ML IVPB SCH (15:00)
[2021-07-02] MEDS ORDERED: Loratadine 10 MG TAB PO SCH (21:00)
[2021-07-03] MEDS: Piperacillin/Tazobactam 3.375 GM in Sodium Chloride 0.9% 100 ML IVPB SCH (05:48)
[2021-07-03 06:02] LABS: Band 5 % (5-11); Hemoglobin 9.5 g/dL (14.0-18.0); Lymphocytes 24 % (21-51); MDiff Complete? YES; Mean Corpuscular HGB CONC 32.1 g/dL (32.0-36.0); Mean Corpuscular Hemoglobin 28.4 pg (27.0-31.0); Mean Corpuscular Volume 88.4 fL (78.0-98.0); Monocytes 7 % (0-10); Neutrophil 64 % (42-75); Platelet Count 50 thou/uL (130-400); Platelet Morphology Comment Appears Decreased; RBC Distribution Width 15.9 % (11.5-14.5); Red Blood Cell (RBC) Count 3.33 mill/uL (4.70-6.10); White Blood Cell (WBC) Count 2.4 thou/uL (4.8-10.8)
[2021-07-03 06:04] LABS: Anion Gap 11 mmol/L (10-20); BUN (Urea Nitrogen) 6 mg/dL (8.4-25.7); Calc. Creatinine Clearance 147 mL/min (70-130); Calcium 7.8 mg/dL (7.8-10.44); Carbon Dioxide 23 mmol/L (22-29); Chloride 107 mmol/L (98-107); Glucose 92 mg/dL (70-105); Magnesium 1.5 mg/dL (1.6-2.6); Potassium 3.3 mmol/L (3.5-5.1); Sodium 138 mmol/L (136-145)
[2021-07-03] MEDS ORDERED: Potassium Chloride 20 MEQ TAB PO SCH (07:00)
[2021-07-03] MEDS ORDERED: Magnesium 2 GM/50 ML 2 GM in Premix Bag 1 BAG IVPB SCH (07:00)
[2021-07-03 08:47] VITALS: BP 142/87; TEMP 98.3
[2021-07-03] MEDS: Furosemide 40 MG TAB PO SCH (08:54)
[2021-07-03] MEDS: Spironolactone 100 MG TAB PO SCH (08:55)
[2021-07-03] MEDS: Nadolol 40 MG TAB PO SCH (08:55)
[2021-07-03] MEDS: Cholecalciferol (Vitamin D3) 400 UNITS TAB PO SCH (08:55)
[2021-07-03] MEDS: Ascorbic Acid 500 mg Chewable Tablet PO SCH (08:55)
[2021-07-03] MEDS: Zinc Sulfate 220 MG CAP PO SCH (08:56)
[2021-07-03] MEDS: Pantoprazole 40 MG VIAL IVP SCH (08:56)
[2021-07-03] MEDS: Rifaximin 550 MG TAB PO SCH (08:56)
== END 2021-07-03 12:10 | disposition home or self-care (01) | DRG 432 ==
LOC: ERS 21:58 → SURG A 06-28 01:10 → IMCU/EMU 06-28 08:06 → CCU 06-28 13:42 → 2SW 06-30 22:54
PROVIDERS: ADMIT Student in an Organized Health Care Education/Training Program; ATTEND Family Medicine
PROC: 06L38CZ Occlusion of Esophageal Vein with Extraluminal Device, Via Natural or Artificial Opening Endoscopic (ICD-10-PCS; principal; 2021-06-28)
PROC: 5A1945Z Respiratory Ventilation, 24-96 Consecutive Hours (ICD-10-PCS; 2021-06-28)
PROC: 0BH17EZ Insertion of Endotracheal Airway into Trachea, Via Natural or Artificial Opening (ICD-10-PCS; 2021-06-28)
PROC: 8E0ZXY6 Isolation (ICD-10-PCS; 2021-07-01)
DX: K70.31 Alcoholic cirrhosis of liver with ascites (principal); I85.11 Secondary esophageal varices with bleeding; U07.1 COVID-19; J96.01 Acute respiratory failure with hypoxia; D61.818 Other pancytopenia; K76.6 Portal hypertension; D62 Acute posthemorrhagic anemia; K31.89 Other diseases of stomach and duodenum; I10 Essential (primary) hypertension; F41.9 Anxiety disorder, unspecified; E83.110 Hereditary hemochromatosis; F12.10 Cannabis abuse, uncomplicated; F43.10 Post-traumatic stress disorder, unspecified; B18.2 Chronic viral hepatitis C; D63.8 Anemia in other chronic diseases classified elsewhere; F10.11 Alcohol abuse, in remission; Z87.820 Personal history of traumatic brain injury; Z88.8 Allergy status to other drugs, medicaments and biological substances; Z79.899 Other long term (current) drug therapy; Z90.49 Acquired absence of other specified parts of digestive tract; Z78.1 Physical restraint status; Z87.891 Personal history of nicotine dependence
CPT/HCPCS: 36415; 36600; 71045; 80048; 80053; 82805; 83735; 84100; 85025; 85027; 85610; 85730; 86850; 86900; 86901; 93005; 94002; 94003; 96365; 96366; 96367; 96375; C9113; J0696; J2060; J2250; J2354; J2543; J2704; J3010; J3475; J3490; J7050; Q0162; U0002